=== PATIENT | male | born 1960 | race Native Hawaiian/Other Pacific Islander ===

== ENCOUNTER 2018-08-22 16:16 | Inpatient (IN) | payer OTHER ==
[2018-08-25 19:12] VITALS: BMI 43.9
--- NOTE | 2018-08-25 20:17 | CP.PCM.HP ---
History of Present Illness - History of Present Illness History of Present Illness: 58 yo male with history of Sarcoma of the right leg brought in from [facility] after undergoing right AKA on 08/18/2018. Present on Admission - Present on Admission Any Indicators Present on Admission: No History of DVT/PE: No History of Uncontrolled Diabetes: No Urinary Catheter: No Decubitus Ulcer Present: No Review of Systems - Review of Systems All systems: reviewed and no additional remarkable complaints except (aside from those mentioned above, 12 point system review were negative by me) Past Patient History - Tetanus Immunizations Tetanus Immunization: Unknown - Past Medical History & Family History Past Medical History?: Yes - Past Social History Smoking Status: Never Smoked Chewing Tobacco Use: No Cigar Use: No Alcohol: None Drugs: Denies - CARDIAC Hx Cardia Arrhythmia: No Hx Congestive Heart Failure: No Hx Hypercholesterolemia: No Hx Hypertension: Yes Hx Mitral Valve Prolapse: No Hx Pacemaker: No Hx Peripheral Edema: No - PULMONARY Hx Chronic Obstructive Pulmonary Disease (COPD): No - NEUROLOGICAL Hx Neurological Disorder: No - HEENT Hx HEENT Problems: No - RENAL Hx Chronic Kidney Disease: No - ENDOCRINE/METABOLIC Hx Diabetes Mellitus Type 2: Yes Hx Hyperthyroidism: No Hx Hypothyroidism: No - HEMATOLOGICAL/ONCOLOGICAL Hx Anemia: Yes Hx Cancer: Yes (right tibia) - INTEGUMENTARY Hx Dermatological Problems: No - MUSCULOSKELETAL/RHEUMATOLOGICAL Hx Arthritis: No Hx Rheumatoid Arthritis: No - GASTROINTESTINAL Hx Gastrointestinal Disorders: No Hx Bowel Surgery: No Hx Colostomy: No Hx Ileostomy: No - GENITOURINARY/GYNECOLOGICAL Hx Genitourinary Disorders: No - PSYCHIATRIC Hx Emotional Abuse: No Hx Physical Abuse: No Hx Substance Use: No - SURGICAL HISTORY Other/Comment: laser surgery both eyes. Right leg radical resection of tumor (Tibial shaft). Free right VRAM flap to right lower leg - ANESTHESIA Hx Anesthesia: Yes Hx Anesthesia Reactions: Yes (vomiting) Hx Malignant Hyperthermia: No Meds Allergies/Adverse Reactions: Allergies Allergy/AdvReac Type Severity Reaction Status Date / Time fosaprepitant Allergy Severe SHORTNESS Verified 08/25/18 20:38 [From Emend (fosaprepitant)] OF BREATH Physical Exam - Constitutional Appears: No Acute Distress - Head Exam Head Exam: ATRAUMATIC - Eye Exam Eye Exam: absent: Scleral icterus - ENT Exam ENT Exam: Mucous Membranes Moist - Neck Exam Neck exam: Negative for: Meningismus - Respiratory Exam Respiratory Exam: absent: Rales, Rhonchi, Wheezes, Respiratory Distress - Cardiovascular Exam Cardiovascular Exam: REGULAR RHYTHM, +S1, +S2 - GI/Abdominal Exam GI & Abdominal Exam: Soft. absent: Tenderness - Rectal Exam Rectal Exam: Deferred - Extremities Exam Extremities exam: Negative for: normal inspection (right leg amputated above the knee, surgical wound clean and dry with some blisters, suture intact, without sign of infection) - Neurological Exam Neurological exam: Alert, Oriented x3 - Psychiatric Exam Psychiatric exam: Normal Affect - Skin Skin Exam: Dry, Intact Assessment & Plan - Assessment and Plan (Free Text) Assessment: 58 yo male with history of Sarcoma of the right leg brought in from [facility] after undergoing right AKA on 08/18/2018. 1. Sarcoma post right AKA refer to PT for evaluation and management physiatry consult with Dr Anderson 2. DM2 accuchek ACHS FBS, HgA1C in am Levemir 50 units SC HS Glimipiride 4mg PO BID Metformin 1000mg PO BID 3. HTN BP stable continue Clonidine 4. DVT prophylaxis continue Lovenox
[2018-08-25] MEDS: oxyCODONE 5 mg Immediate Release Tab PO PRN (21:00)
[2018-08-25] MEDS ORDERED: Insulin Detemir 100 Units/ml Inj SC ONE (21:45)
[2018-08-25] MEDS: Insulin Lispro (humaLOG) 100 Units/ml Inj SC SCH (22:00)
[2018-08-26] MEDS: oxyCODONE 5 mg Immediate Release Tab PO PRN ×3 (05:25→16:57)
[2018-08-26 06:42] LABS: BASO % 0.6 % (0.0-2.0); EOS % 0.3 % (0.0-4.0); HEMOGLOBIN 8.2 g/dL (12.0-18.0); LYMPH # 0.5 K/uL (1.0-4.3); LYMPH % 11.7 % (20.0-40.0); MEAN CELL VOLUME 90.7 fl (80.0-94.0); MEAN CORPUSCULAR HEMOGLOBIN 30.1 pg (27.0-31.0); MEAN CORPUSCULAR HGB CONC 33.2 g/dL (33.0-37.0); MEAN PLATELET VOLUME 7.8 fl (7.2-11.7); MONO # 0.5 K/uL (0.0-0.8); MONO % 11.5 % (0.0-10.0); NEUT # 3.5 K/uL (1.8-7.0); NEUT % 75.9 % (50.0-75.0); NRBC % 0.1 % (0.0-0.0); RBC 2.74 Mil/uL (4.40-5.90); RED CELL DISTRIBUTION WIDTH 19.4 % (11.5-14.5); WHITE BLOOD COUNT 4.6 K/uL (4.8-10.8)
[2018-08-26] MEDS: Insulin Lispro (humaLOG) 100 Units/ml Inj SC SCH ×4 (06:56→21:01)
[2018-08-26 07:01] LABS: BLOOD UREA NITROGEN 12 mg/dl (9-20); CALCIUM 8.7 mg/dL (8.4-10.2); GFR NON-AFRICAN AMERICAN > 60; INR 1.1; PROTHROMBIN TIME 12.3 Seconds (9.8-13.1)
[2018-08-26 07:03] LABS: PARTIAL THROMBOPLASTIN TIME 34.2 Seconds (25.6-37.1)
[2018-08-26] MEDS ORDERED: oxyCODONE 5 mg Immediate Release Tab PO STA (07:03)
[2018-08-26] MEDS: Bisacodyl 5mg EC Tab PO SCH (09:00)
[2018-08-26] MEDS: GlipiZIDE 10 mg SR Tab PO SCH ×2 (09:01→16:59)
[2018-08-26] MEDS: Pantoprazole 40 mg EC Tab PO SCH (09:02)
--- NOTE | 2018-08-26 13:17 | PCM.PSYTMC ---
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 - Patient/Family Teaching: Other Intervention:: - Pain management. - Incisional care. - Safety - Goals/Time Frame: Comment: to be able to go home safely with improved self mobility and self care. - Provider: Registered Nurse:: Sharri Schneider Physical Therapy - Bed Mobility Bed Mobility: Moderate Assistance - Ambulation Distance (ft.): 12 Assistive Devices: Rolling Walker Nutrition - Current Diet Current Diet/Supplement/Feedings: Moderate consistent CHO 2 gram Na diet - Appetite Percent Meal Consumed: 25-49% - Assessment/Goals/Time Frame Assessments/Goals/Time Frame: Pt at high nutritional risk. goals: 1. Pt to consume 75-100% of meals. 2. Blood glucoses to be between 70-180 mg/dl. Follow-up due on 08/31/2018 - Provider Provider: Andreina Rodriguez Case Management - Psychosocial Assessment Support Systems: Kristel Barraza () - [phone] Psychological Interventions/Needs: Patient is AAOx3 and able to verbalize needs. Discharge Concerns: Patient is a new amputee Patient/Family Meeting: CM met with patient and rehab team Intervention/Goal/Outcome: 1. Goal: 24 hr supervision 2. Plan: home with VNS and family support 3. begin to order appropriate DME 4. caregiver training with 5. emotional support - Discharge Plan Discharge Plan: Home with services - Provider Provider: Jackeline Nassar License Number: [id number] Rehabilitation Plan - Treatment Plan Treatment Plan: Physical Therapy, Occupational Therapy, Dietary, Patient/Family Education - Discharge Plan Discharge to: Home
[2018-08-26] MEDS: Silver Sulfadiazine 1% Cream (20 gm) TOP SCH ×2 (13:54→16:58)
[2018-08-26] MEDS: Enoxaparin 40 mg Syringe SC SCH (13:55)
--- NOTE | 2018-08-26 13:57 | PCM.OPOC ---
Physiatry Overall Plan of Care - Overall Plan of Care Estimated Length of Stay in Weeks: 3 Rehab Impairment: Mobility, Gait, Balance Etiologic Diagnosis: Amputee Rehab/Medical Prognosis: Fair - Anticipated Interventions Physical Therapy:: Yes Number of Hours: 1.5 Number of times per week: 6 Number of Week(s) Duration: 3 Occupational Therapy:: Yes Number of Hours: 1.5 Number of times per week: 6 Number of Week(s) Duration: 3 Speech Therapy:: No Number of Hours: 0.5 Number of times per week: 5 Recreational Therapy:: Yes Number of Hours: 0.5 Number of times per week: 5 Number of Week(s) Duration: 3 - Therapy Goals Bed Mobility: Supervision Ambulation: Contact Guard Functional Positional Changes:: Supervision - Functional Status Prior to Admission: non-ambulatory Current Status: needs moderate assist for LE ADLs and ambulation only 12 feet with walker - Functional Outcomes Functional Outcomes: to be determined - Discharge Plan Identification of Barriers to Discharge: Home Situation Discharge Destination: Home
--- NOTE | 2018-08-26 14:00 | PCM.CPAPS ---
History of Present Illness - History of Present Illness History of Present Illness: Dr Anderson PMR consultation on Nikita Barraza, born 1960, who has been admitted to [facility] for acute inpatient rehabilitation following a right AKA at for Sarcoma. Has had radiation treatment. Known mets to other areas, some improved and some did not with chemo treatment. Review of Systems - Constitutional Constitutional: absent: Anorexia, Daytime Sleepiness, Increased Appetite - EENT Eyes: absent: Change in Vision, Dry Eye Ears: absent: Ear Discharge, Ear Pain Nose/Mouth/Throat: absent: Nasal Congestion - Cardiovascular Cardiovascular: absent: Chest Pain - Respiratory Respiratory: absent: Cough, Dyspnea, Hemoptysis - Gastrointestinal Gastrointestinal: Constipation (but had a BM today). absent: Belching - Integumentary Integumentary: absent: Bleeding Lesions (incision on right AKA) - Neurological Neurological: absent: Abnormal Movements - Psychiatric Psychiatric: absent: Irritability Past Patient History - Tetanus Immunizations Tetanus Immunization: Unknown - Past Medical History & Family History Past Medical History?: Yes - Past Social History Smoking Status: Never Smoked Chewing Tobacco Use: No Cigar Use: No Alcohol: None Drugs: Denies - CARDIAC Hx Cardia Arrhythmia: No Hx Congestive Heart Failure: No Hx Hypercholesterolemia: No Hx Hypertension: Yes Hx Mitral Valve Prolapse: No Hx Pacemaker: No Hx Peripheral Edema: No - PULMONARY Hx Chronic Obstructive Pulmonary Disease (COPD): No - NEUROLOGICAL Hx Neurological Disorder: No - HEENT Hx HEENT Problems: No - RENAL Hx Chronic Kidney Disease: No - ENDOCRINE/METABOLIC Hx Diabetes Mellitus Type 2: Yes Hx Hyperthyroidism: No Hx Hypothyroidism: No - HEMATOLOGICAL/ONCOLOGICAL Hx Anemia: Yes Hx Cancer: Yes (right tibia) - INTEGUMENTARY Hx Dermatological Problems: No - MUSCULOSKELETAL/RHEUMATOLOGICAL Hx Arthritis: No Hx Rheumatoid Arthritis: No - GASTROINTESTINAL Hx Gastrointestinal Disorders: No Hx Bowel Surgery: No Hx Colostomy: No Hx Ileostomy: No - GENITOURINARY/GYNECOLOGICAL Hx Genitourinary Disorders: No - PSYCHIATRIC Hx Emotional Abuse: No Hx Physical Abuse: No Hx Substance Use: No - SURGICAL HISTORY Other/Comment: laser surgery both eyes. Right leg radical resection of tumor (Tibial shaft). Free right VRAM flap to right lower leg - ANESTHESIA Hx Anesthesia: Yes Hx Anesthesia Reactions: Yes (vomiting) Hx Malignant Hyperthermia: No Meds Allergies/Adverse Reactions: Allergies Allergy/AdvReac Type Severity Reaction Status Date / Time fosaprepitant Allergy Severe SHORTNESS Verified 08/25/18 20:38 [From Emend (fosaprepitant)] OF BREATH - Medications Medications: Current Medications Albuterol (Ventolin Hfa 90 Mcg/Actuation (8 G)) 1 puff IH QID PRN PRN Reason: Shortness of Breath Atorvastatin Calcium (Lipitor) 10 mg PO HS [facility] Last Admin: 08/25/18 21:03 Dose: 10 mg Bisacodyl (Dulcolax) 5 mg PO DAILY [facility] Last Admin: 08/26/18 09:00 Dose: Not Given Clonidine HCl (Catapres) 0.1 mg PO 1400 [facility] Docusate Sodium (Colace) 300 mg PO DAILY [facility] Last Admin: 08/26/18 08:59 Dose: 300 mg Enoxaparin Sodium (Lovenox) 40 mg SC DAILY [facility]; Protocol Gabapentin (Neurontin) 300 mg PO Q8 [facility] Last Admin: 08/26/18 05:26 Dose: 300 mg Glipizide (Glucotrol Xl) 10 mg PO BID [facility] Last Admin: 08/26/18 09:01 Dose: 10 mg Insulin Detemir (Levemir) 50 units SC HS [facility] Insulin Human Lispro (Humalog) 0 units SC [facility]; Protocol Last Admin: 08/26/18 12:43 Dose: 2 unit Lorazepam (Ativan) 0.5 mg PO Q8H PRN PRN Reason: Anxiety Metformin HCl (Glucophage) 1,000 mg PO BID [facility] Last Admin: 08/26/18 09:01 Dose: 1,000 mg Oxycodone HCl (Oxycodone Immediate Release Tab) 5 mg PO Q4 PRN PRN Reason: Pain, moderate (4-7) Last Admin: 08/26/18 05:25 Dose: 5 mg Oxycodone HCl (Oxycodone Immediate Release Tab) 10 mg PO Q4 PRN PRN Reason: Pain, severe (8-10) Last Admin: 08/26/18 09:56 Dose: 10 mg Pantoprazole Sodium (Protonix Ec Tab) 40 mg PO DAILY [facility] Last Admin: 08/26/18 09:02 Dose: 40 mg Sennosides (Senokot Tab) 17.2 mg PO [facility] Silver Sulfadiazine (Silvadene 1% 20 Gm) 1 ea TOP BID [facility] Sitagliptin Phosphate (Januvia) 50 mg PO BID [facility] Last Admin: 08/26/18 09:01 Dose: 50 mg Physical Exam - Constitutional Appears: Non-toxic, No Acute Distress - Head Exam Head Exam: ATRAUMATIC, NORMAL INSPECTION, NORMOCEPHALIC - Eye Exam Eye Exam: EOMI - ENT Exam ENT Exam: Mucous Membranes Moist - Respiratory Exam Respiratory Exam: NORMAL BREATHING PATTERN - Cardiovascular Exam Cardiovascular Exam: REGULAR RHYTHM - GI/Abdominal Exam GI & Abdominal Exam: absent: Diminished Bowel Sounds, Firm, Guarding - Extremities Exam Extremities exam: Negative for: normal inspection (right AKA with good lenth. + sutures. Multiple blisters lateral, anterior and distal on and near incision line) - Neurological Exam Neurological exam: Alert, CN II-XII Intact, Oriented x3 - Psychiatric Exam Psychiatric exam: Normal Affect, Normal Mood - Skin Skin Exam: Normal Color, Warm Results - Vital Signs Recent Vital Signs: Last Vital Signs Temp 98.1 F 08/26/18 10:00 Pulse 79 08/26/18 10:00 Resp 20 08/26/18 10:00 BP 144/71 08/26/18 10:00 Pulse Ox 96 08/26/18 07:36 - Labs Result Diagrams: 08/26/18 06:00 08/26/18 06:00 Labs: Laboratory Results - last 24 hr 08/25/18 08/26/18 08/26/18 20:18 06:00 06:00 WBC 4.6 L RBC 2.74 L Hgb 8.2 L D Hct 24.8 L MCV 90.7 MCH 30.1 MCHC 33.2 RDW 19.4 H Plt Count 128 L MPV 7.8 Neut % (Auto) 75.9 H Lymph % (Auto) 11.7 L Crowley % (Auto) 11.5 H Eos % (Auto) 0.3 Baso % (Auto) 0.6 Neut # (Auto) 3.5 Lymph # (Auto) 0.5 L Crowley # (Auto) 0.5 Eos # (Auto) 0.0 Baso # (Auto) 0.0 PT INR APTT Sodium 138 Potassium 4.2 Chloride 98 Carbon Dioxide 31 H Anion Gap 13 BUN 12 Creatinine 0.9 Est GFR ( Amer) > 60 Est GFR (Non-Af Amer) > 60 POC Glucose (mg/dL) 124 H Random Glucose 155 H Hemoglobin A1c Calcium 8.7 08/26/18 08/26/18 08/26/18 06:00 06:00 06:09 WBC RBC Hgb Hct MCV MCH MCHC RDW Plt Count MPV Neut % (Auto) Lymph % (Auto) Crowley % (Auto) Eos % (Auto) Baso % (Auto) Neut # (Auto) Lymph # (Auto) Crowley # (Auto) Eos # (Auto) Baso # (Auto) PT 12.3 INR 1.1 APTT 34.2 Sodium Potassium Chloride Carbon Dioxide Anion Gap BUN Creatinine Est GFR ( Amer) Est GFR (Non-Af Amer) POC Glucose (mg/dL) 161 H Random Glucose Hemoglobin A1c 7.7 H D Calcium 08/26/18 11:14 WBC RBC Hgb Hct MCV MCH MCHC RDW Plt Count MPV Neut % (Auto) Lymph % (Auto) Crowley % (Auto) Eos % (Auto) Baso % (Auto) Neut # (Auto) Lymph # (Auto) Crowley # (Auto) Eos # (Auto) Baso # (Auto) PT INR APTT Sodium Potassium Chloride Carbon Dioxide Anion Gap BUN Creatinine Est GFR ( Amer) Est GFR (Non-Af Amer) POC Glucose (mg/dL) 212 H Random Glucose Hemoglobin A1c Calcium Assessment & Plan - Assessment and Plan (Free Text) Assessment: PT/OT to continue to help increase functional independence Team conference for d/c planning Pain: controlled Vascular: no evidence of DVT GI: No evidence of constipation or diarrhea I used a needle to gently puncture the lateral and anterior blisters so they would not be opened by friction with the wrapping and risk a skin tear as well Patient is an excellent acute rehabilitation candidate and will have focused pain management, wound care, PT, OT and recreational therapy to help facilitate a safe and appropriate d/c plan - Functional Status Prior to Admission: Needed assistance with ambulation after the AKA Current Status: Needs assistance with LE ADLs and ambulation Impairment Code: 05.3
[2018-08-26] MEDS: Insulin Detemir 100 Units/ml Inj SC SCH (21:59)
[2018-08-27] MEDS: oxyCODONE 5 mg Immediate Release Tab PO PRN ×3 (00:51→13:21)
[2018-08-27] MEDS: Insulin Lispro (humaLOG) 100 Units/ml Inj SC SCH ×4 (06:30→21:49)
[2018-08-27] MEDS: Enoxaparin 40 mg Syringe SC SCH (08:48)
[2018-08-27] MEDS: Bisacodyl 5mg EC Tab PO SCH (08:50)
[2018-08-27] MEDS: GlipiZIDE 10 mg SR Tab PO SCH ×2 (08:51→17:11)
[2018-08-27] MEDS: Silver Sulfadiazine 1% Cream (20 gm) TOP SCH ×2 (08:52→17:10)
[2018-08-27] MEDS: Pantoprazole 40 mg EC Tab PO SCH (08:52)
--- NOTE | 2018-08-27 18:02 | CP.PCM.PN ---
Subjective - Date & Time of Evaluation Date of Evaluation: 08/27/18 Time of Evaluation: 18:01 - Subjective Subjective: Nikita Barraza, born 1960, who has been admitted to [facility] for acute inpatient rehabilitation following a right AKA at for Sarcoma. Has had radiation treatment. Known mets to other areas, some improved and some did not with chemo treatment. Feeling much better now that up and about in therapies Objective - Vital Signs/Intake and Output Vital Signs (last 24 hours): Temp Pulse Resp BP Pulse Ox 97.7 F 80 18 129/74 94 L 08/27/18 07:27 08/27/18 13:26 08/27/18 07:27 08/27/18 13:26 08/27/18 07:27 - Medications Medications: Current Medications Albuterol (Ventolin Hfa 90 Mcg/Actuation (8 G)) 1 puff IH QID PRN PRN Reason: Shortness of Breath Atorvastatin Calcium (Lipitor) 10 mg PO HS [facility] Last Admin: 08/26/18 21:57 Dose: 10 mg Bisacodyl (Dulcolax) 5 mg PO DAILY [facility] Last Admin: 08/27/18 08:50 Dose: 5 mg Clonidine HCl (Catapres) 0.1 mg PO 1400 [facility] Last Admin: 08/27/18 13:26 Dose: 0.1 mg Docusate Sodium (Colace) 300 mg PO DAILY [facility] Last Admin: 08/27/18 08:49 Dose: 300 mg Enoxaparin Sodium (Lovenox) 40 mg SC DAILY [facility]; Protocol Last Admin: 08/27/18 08:48 Dose: 40 mg Ferrous Sulfate (Feosol) 325 mg PO BID [facility] Last Admin: 08/27/18 17:11 Dose: 325 mg Gabapentin (Neurontin) 300 mg PO Q8 [facility] Last Admin: 08/27/18 13:23 Dose: 300 mg Glipizide (Glucotrol Xl) 10 mg PO BID [facility] Last Admin: 08/27/18 17:11 Dose: 10 mg Insulin Detemir (Levemir) 50 units SC [facility] Last Admin: 08/26/18 21:59 Dose: 50 units Insulin Human Lispro (Humalog) 0 units SC [facility]; Protocol Last Admin: 08/27/18 17:02 Dose: Not Given Lorazepam (Ativan) 0.5 mg PO Q8H PRN PRN Reason: Anxiety Metformin HCl (Glucophage) 1,000 mg PO BID [facility] Last Admin: 08/27/18 17:11 Dose: 1,000 mg Oxycodone HCl (Oxycodone Immediate Release Tab) 5 mg PO Q4 PRN PRN Reason: Pain, moderate (4-7) Last Admin: 08/27/18 06:23 Dose: 5 mg Oxycodone HCl (Oxycodone Immediate Release Tab) 10 mg PO Q4 PRN PRN Reason: Pain, severe (8-10) Last Admin: 08/27/18 13:21 Dose: 10 mg Pantoprazole Sodium (Protonix Ec Tab) 40 mg PO DAILY [facility] Last Admin: 08/27/18 08:52 Dose: 40 mg Sennosides (Senokot Tab) 17.2 mg PO HS [facility] Last Admin: 08/26/18 21:57 Dose: 17.2 mg Silver Sulfadiazine (Silvadene 1% 20 Gm) 1 ea TOP BID [facility] Last Admin: 08/27/18 17:10 Dose: Not Given Sitagliptin Phosphate (Januvia) 50 mg PO BID [facility] Last Admin: 08/27/18 17:12 Dose: 50 mg - Labs Labs: 08/26/18 06:00 08/26/18 06:00 PT 12.3 Seconds (9.8-13.1) 08/26/18 06:00 INR 1.1 08/26/18 06:00 APTT 34.2 Seconds (25.6-37.1) 08/26/18 06:00 - Constitutional Appears: Non-toxic, No Acute Distress - Head Exam Head Exam: ATRAUMATIC - Eye Exam Eye Exam: EOMI - ENT Exam ENT Exam: Mucous Membranes Moist - Respiratory Exam Respiratory Exam: NORMAL BREATHING PATTERN - GI/Abdominal Exam GI & Abdominal Exam: Distended. absent: Guarding - Neurological Exam Neurological Exam: Alert Neuro motor strength exam: Left Upper Extremity: 5, Right Upper Extremity: 5 - Psychiatric Exam Psychiatric exam: Normal Affect, Normal Mood - Skin Skin Exam: Warm Assessment and Plan - Assessment and Plan (Free Text) Assessment: PT/OT to continue to help increase functional independence Team conference for d/c planning Pain: controlled Vascular: no evidence of DVT GI: No evidence of constipation or diarrhea Patient continues to be an excellent acute rehabilitation candidate and will have continued wound care, pain management PT, OT and recreational therapy to help facilitate a safe and appropriate d/c plan
[2018-08-27] MEDS: Insulin Detemir 100 Units/ml Inj SC SCH (21:53)
[2018-08-28] MEDS: Silver Sulfadiazine 1% Cream (20 gm) TOP SCH ×2 (06:57→17:21)
[2018-08-28 07:10] LABS: HEMOGLOBIN 9.2 g/dL (12.0-18.0); MEAN CELL VOLUME 91.3 fl (80.0-94.0); MEAN CORPUSCULAR HGB CONC 32.9 g/dL (33.0-37.0); RBC 3.07 Mil/uL (4.40-5.90); RED CELL DISTRIBUTION WIDTH 19.5 % (11.5-14.5); WHITE BLOOD COUNT 5.4 K/uL (4.8-10.8)
[2018-08-28] MEDS: Insulin Lispro (humaLOG) 100 Units/ml Inj SC SCH ×4 (07:16→22:38)
[2018-08-28] MEDS: oxyCODONE 5 mg Immediate Release Tab PO PRN (09:09)
[2018-08-28] MEDS: Enoxaparin 40 mg Syringe SC SCH (09:11)
[2018-08-28] MEDS: Bisacodyl 5mg EC Tab PO SCH (09:12)
[2018-08-28] MEDS: GlipiZIDE 10 mg SR Tab PO SCH ×2 (09:12→16:25)
[2018-08-28] MEDS: Pantoprazole 40 mg EC Tab PO SCH (09:13)
[2018-08-28] MEDS: Insulin Detemir 100 Units/ml Inj SC SCH (22:07)
[2018-08-29] MEDS: Silver Sulfadiazine 1% Cream (20 gm) TOP SCH ×2 (06:35→17:42)
[2018-08-29 06:56] LABS: HEMOGLOBIN 8.2 g/dL (12.0-18.0); MEAN CELL VOLUME 90.8 fl (80.0-94.0); MEAN CORPUSCULAR HEMOGLOBIN 29.6 pg (27.0-31.0); MEAN CORPUSCULAR HGB CONC 32.6 g/dL (33.0-37.0); RBC 2.76 Mil/uL (4.40-5.90); RED CELL DISTRIBUTION WIDTH 20.1 % (11.5-14.5)
[2018-08-29 07:11] LABS: CALCIUM 9.2 mg/dL (8.4-10.2)
[2018-08-29] MEDS: Insulin Lispro (humaLOG) 100 Units/ml Inj SC SCH ×4 (07:50→21:00)
[2018-08-29] MEDS: GlipiZIDE 10 mg SR Tab PO SCH ×2 (08:51→16:36)
[2018-08-29] MEDS: Pantoprazole 40 mg EC Tab PO SCH (08:51)
[2018-08-29] MEDS: Bisacodyl 5mg EC Tab PO SCH (08:51)
[2018-08-29] MEDS: Enoxaparin 40 mg Syringe SC SCH (08:51)
--- NOTE | 2018-08-29 14:21 | CP.PCM.PN ---
Subjective - Date & Time of Evaluation Date of Evaluation: 08/29/18 Time of Evaluation: 11:00 - Subjective Subjective: Patient seen and examined. Claimed he was alright but was tired and sleepy post therapy. Objective - Vital Signs/Intake and Output Vital Signs (last 24 hours): Temp Pulse Resp BP Pulse Ox 98.2 F 78 20 147/72 98 08/29/18 07:49 08/29/18 07:49 08/29/18 07:49 08/29/18 07:49 08/29/18 07:49 - Medications Medications: Current Medications Albuterol (Ventolin Hfa 90 Mcg/Actuation (8 G)) 1 puff IH QID PRN PRN Reason: Shortness of Breath Atorvastatin Calcium (Lipitor) 10 mg PO HS [facility] Last Admin: 08/28/18 22:06 Dose: 10 mg Bisacodyl (Dulcolax) 5 mg PO DAILY [facility] Last Admin: 08/29/18 08:51 Dose: 5 mg Clonidine HCl (Catapres) 0.1 mg PO 1400 [facility] Last Admin: 08/28/18 14:04 Dose: 0.1 mg Docusate Sodium (Colace) 300 mg PO DAILY [facility] Last Admin: 08/29/18 08:52 Dose: 300 mg Enoxaparin Sodium (Lovenox) 40 mg SC DAILY [facility]; Protocol Last Admin: 08/29/18 08:51 Dose: 40 mg Ferrous Sulfate (Feosol) 325 mg PO BID [facility] Last Admin: 08/29/18 08:53 Dose: 325 mg Gabapentin (Neurontin) 300 mg PO Q8 [facility] Last Admin: 08/29/18 06:13 Dose: 300 mg Glipizide (Glucotrol Xl) 10 mg PO BID [facility] Last Admin: 08/29/18 08:51 Dose: 10 mg Sodium Chloride (Sodium Chloride 0.9%) 1,000 mls @ 100 mls/hr IV .Q10H [facility] Stop: 08/30/18 12:03 Sodium Chloride (Sodium Chloride 0.9%) 1,000 mls @ 100 mls/hr IV .Q10H [facility] Stop: 08/31/18 12:16 Insulin Detemir (Levemir) 50 units SC [facility] Last Admin: 08/28/18 22:07 Dose: 50 units Insulin Human Lispro (Humalog) 0 units SC [facility]; Protocol Last Admin: 08/29/18 11:48 Dose: Not Given Lorazepam (Ativan) 0.5 mg PO Q8H PRN PRN Reason: Anxiety Metformin HCl (Glucophage) 1,000 mg PO BID [facility] Last Admin: 08/29/18 08:53 Dose: 1,000 mg Oxycodone HCl (Oxycodone Immediate Release Tab) 5 mg PO Q4 PRN PRN Reason: Pain, moderate (4-7) Last Admin: 08/28/18 09:09 Dose: 5 mg Oxycodone HCl (Oxycodone Immediate Release Tab) 10 mg PO Q4 PRN PRN Reason: Pain, severe (8-10) Last Admin: 08/27/18 13:21 Dose: 10 mg Pantoprazole Sodium (Protonix Ec Tab) 40 mg PO DAILY [facility] Last Admin: 08/29/18 08:51 Dose: 40 mg Sennosides (Senokot Tab) 17.2 mg PO HS [facility] Last Admin: 08/28/18 22:06 Dose: 17.2 mg Silver Sulfadiazine (Silvadene 1% 20 Gm) 1 ea TOP 0600,1800 [facility] Last Admin: 08/29/18 06:35 Dose: 1 each Sitagliptin Phosphate (Januvia) 50 mg PO BID [facility] Last Admin: 08/29/18 08:53 Dose: 50 mg - Labs Labs: 08/29/18 06:28 08/29/18 06:28 PT 12.3 Seconds (9.8-13.1) 08/26/18 06:00 INR 1.1 08/26/18 06:00 APTT 34.2 Seconds (25.6-37.1) 08/26/18 06:00 - Constitutional Appears: No Acute Distress - Head Exam Head Exam: ATRAUMATIC - Eye Exam Eye Exam: absent: Scleral icterus - ENT Exam ENT Exam: Mucous Membranes Moist - Neck Exam Neck Exam: absent: Meningismus - Respiratory Exam Respiratory Exam: absent: Rales, Rhonchi, Wheezes, Respiratory Distress - Cardiovascular Exam Cardiovascular Exam: REGULAR RHYTHM, +S1, +S2 - GI/Abdominal Exam GI & Abdominal Exam: Soft. absent: Tenderness - Rectal Exam Rectal Exam: Deferred - Extremities Exam Extremities Exam: absent: Normal Inspection (right AKA stump clean without sign of infection or drainage) - Neurological Exam Neurological Exam: Alert, Oriented x3 - Psychiatric Exam Psychiatric exam: Normal Affect - Skin Skin Exam: Dry, Intact Assessment and Plan - Assessment and Plan (Free Text) Assessment: 58 yo male with history of Sarcoma of the right leg brought in from [facility] after undergoing right AKA on 08/18/2018. 1. Sarcoma post right AKA continue PT/OT pain manageable Dr Anderson on physiatry consult 2. DM2 BS controlled FBS, HgA1C in am Levemir 50 units SC HS Glipizide 10mg PO BID Metformin 1000mg PO BID 3. HTN BP stable continue Clonidine 4. DVT prophylaxis continue Lovenox
--- NOTE | 2018-08-29 14:49 | CP.PCM.PN ---
Subjective - Date & Time of Evaluation Date of Evaluation: 08/29/18 Time of Evaluation: 14:48 - Subjective Subjective: Patient seen in the PT gym no more phantom sensation seen by emergency preparedness coordinator no sob/cp continue local wound care and pain management Objective - Vital Signs/Intake and Output Vital Signs (last 24 hours): Temp Pulse Resp BP Pulse Ox 98.2 F 92 H 20 132/72 98 08/29/18 07:49 08/29/18 14:44 08/29/18 07:49 08/29/18 14:44 08/29/18 07:49 - Medications Medications: Current Medications Albuterol (Ventolin Hfa 90 Mcg/Actuation (8 G)) 1 puff IH QID PRN PRN Reason: Shortness of Breath Atorvastatin Calcium (Lipitor) 10 mg PO HS [facility] Last Admin: 08/28/18 22:06 Dose: 10 mg Bisacodyl (Dulcolax) 5 mg PO DAILY [facility] Last Admin: 08/29/18 08:51 Dose: 5 mg Clonidine HCl (Catapres) 0.1 mg PO 1400 [facility] Last Admin: 08/29/18 14:44 Dose: 0.1 mg Docusate Sodium (Colace) 300 mg PO DAILY [facility] Last Admin: 08/29/18 08:52 Dose: 300 mg Enoxaparin Sodium (Lovenox) 40 mg SC DAILY [facility]; Protocol Last Admin: 08/29/18 08:51 Dose: 40 mg Ferrous Sulfate (Feosol) 325 mg PO BID [facility] Last Admin: 08/29/18 08:53 Dose: 325 mg Gabapentin (Neurontin) 300 mg PO Q8 [facility] Last Admin: 08/29/18 14:44 Dose: 300 mg Glipizide (Glucotrol Xl) 10 mg PO BID [facility] Last Admin: 08/29/18 08:51 Dose: 10 mg Sodium Chloride (Sodium Chloride 0.9%) 1,000 mls @ 100 mls/hr IV .Q10H [facility] Stop: 08/30/18 12:03 Sodium Chloride (Sodium Chloride 0.9%) 1,000 mls @ 100 mls/hr IV .Q10H [facility] Stop: 08/31/18 12:16 Insulin Detemir (Levemir) 50 units SC [facility] Last Admin: 08/28/18 22:07 Dose: 50 units Insulin Human Lispro (Humalog) 0 units SC [facility]; Protocol Last Admin: 08/29/18 11:48 Dose: Not Given Lorazepam (Ativan) 0.5 mg PO Q8H PRN PRN Reason: Anxiety Metformin HCl (Glucophage) 1,000 mg PO BID [facility] Last Admin: 08/29/18 08:53 Dose: 1,000 mg Oxycodone HCl (Oxycodone Immediate Release Tab) 5 mg PO Q4 PRN PRN Reason: Pain, moderate (4-7) Last Admin: 08/28/18 09:09 Dose: 5 mg Oxycodone HCl (Oxycodone Immediate Release Tab) 10 mg PO Q4 PRN PRN Reason: Pain, severe (8-10) Last Admin: 08/27/18 13:21 Dose: 10 mg Pantoprazole Sodium (Protonix Ec Tab) 40 mg PO DAILY [facility] Last Admin: 08/29/18 08:51 Dose: 40 mg Sennosides (Senokot Tab) 17.2 mg PO HS [facility] Last Admin: 08/28/18 22:06 Dose: 17.2 mg Silver Sulfadiazine (Silvadene 1% 20 Gm) 1 ea TOP 0600,1800 [facility] Last Admin: 08/29/18 06:35 Dose: 1 each Sitagliptin Phosphate (Januvia) 50 mg PO BID [facility] Last Admin: 08/29/18 08:53 Dose: 50 mg - Labs Labs: 08/29/18 06:28 08/29/18 06:28 PT 12.3 Seconds (9.8-13.1) 08/26/18 06:00 INR 1.1 08/26/18 06:00 APTT 34.2 Seconds (25.6-37.1) 08/26/18 06:00
--- NOTE | 2018-08-29 15:35 | CP.PCM.CON ---
History of Present Illness - History of Present Illness History of Present Illness: This patient is 58 years of age male who was called to see him for abnormal kidney function. 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 It was noted that his serum creatinine has gone up while he is here in the hospital. All the medications has been reviewed patient has not been receiving any antibiotics Medical history related diabetes mellitus mild hypertension as he describe it. [place] in the acute rehab receiving physical therapy Review of Systems - Constitutional Constitutional: absent: Anorexia, Chills - EENT Nose/Mouth/Throat: absent: Epistaxis - Cardiovascular Cardiovascular: absent: Acrocyanosis, Chest Pain at Rest, Dyspnea, Edema, Syncope - Respiratory Respiratory: absent: Cough, Dyspnea - Gastrointestinal Gastrointestinal: absent: As Per HPI, Abdominal Pain, Belching, Bloating, Change in Bowel Habits, Change in Stool Character, Coffee Ground Emesis, Constipation, Cramping, Diarrhea, Dyspepsia, Dysphagia, Early Satiety, Excessive Flatus, Fecal Incontinence, Heartburn, Hematemesis, Hematochezia, Loose Stools, Melena, Nausea, Odynophagia, Temesmus, Vomiting, Other - Genitourinary Genitourinary: Nocturia. absent: Hematuria - Musculoskeletal Musculoskeletal: absent: Arthralgias, Back Pain - Neurological Neurological: As Per HPI. absent: Confusion, Dizziness, Focal Weakness, Syncope - Psychiatric Psychiatric: absent: Anxiety, Confusion, Irritability - Endocrine Endocrine: Fatigue - Hematologic/Lymphatic Hematologic: absent: Easy Bleeding Past Patient History - Tetanus Immunizations Tetanus Immunization: Unknown - Past Medical History & Family History Past Medical History?: Yes - Past Social History Smoking Status: Never Smoked Chewing Tobacco Use: No Cigar Use: No Alcohol: None Drugs: Denies - CARDIAC Hx Cardia Arrhythmia: No Hx Congestive Heart Failure: No Hx Hypercholesterolemia: No Hx Hypertension: Yes Hx Mitral Valve Prolapse: No Hx Pacemaker: No Hx Peripheral Edema: No - PULMONARY Hx Chronic Obstructive Pulmonary Disease (COPD): No - NEUROLOGICAL Hx Neurological Disorder: No - HEENT Hx HEENT Problems: No - RENAL Hx Chronic Kidney Disease: No - ENDOCRINE/METABOLIC Hx Diabetes Mellitus Type 2: Yes Hx Hyperthyroidism: No Hx Hypothyroidism: No - HEMATOLOGICAL/ONCOLOGICAL Hx Anemia: Yes Hx Cancer: Yes (right tibia) - INTEGUMENTARY Hx Dermatological Problems: No - MUSCULOSKELETAL/RHEUMATOLOGICAL Hx Arthritis: No Hx Rheumatoid Arthritis: No - GASTROINTESTINAL Hx Gastrointestinal Disorders: No Hx Bowel Surgery: No Hx Colostomy: No Hx Ileostomy: No - GENITOURINARY/GYNECOLOGICAL Hx Genitourinary Disorders: No - PSYCHIATRIC Hx Emotional Abuse: No Hx Physical Abuse: No Hx Substance Use: No - SURGICAL HISTORY Other/Comment: laser surgery both eyes. Right leg radical resection of tumor ( Tibial shaft). Free right VRAM flap to right lower leg - ANESTHESIA Hx Anesthesia: Yes Hx Anesthesia Reactions: Yes (vomiting) Hx Malignant Hyperthermia: No Meds Allergies/Adverse Reactions: Allergies Allergy/AdvReac Type Severity Reaction Status Date / Time fosaprepitant Allergy Severe SHORTNESS Verified 08/25/18 20:38 [From Emend (fosaprepitant)] OF BREATH - Medications Medications: Current Medications Albuterol (Ventolin Hfa 90 Mcg/Actuation (8 G)) 1 puff IH QID PRN PRN Reason: Shortness of Breath Atorvastatin Calcium (Lipitor) 10 mg PO HS [facility] Last Admin: 08/28/18 22:06 Dose: 10 mg Bisacodyl (Dulcolax) 5 mg PO DAILY [facility] Last Admin: 08/29/18 08:51 Dose: 5 mg Clonidine HCl (Catapres) 0.1 mg PO 1400 [facility] Last Admin: 08/29/18 14:44 Dose: 0.1 mg Docusate Sodium (Colace) 300 mg PO DAILY [facility] Last Admin: 08/29/18 08:52 Dose: 300 mg Enoxaparin Sodium (Lovenox) 40 mg SC DAILY [facility]; Protocol Last Admin: 08/29/18 08:51 Dose: 40 mg Ferrous Sulfate (Feosol) 325 mg PO BID [facility] Last Admin: 08/29/18 08:53 Dose: 325 mg Gabapentin (Neurontin) 300 mg PO Q8 [facility] Last Admin: 08/29/18 14:44 Dose: 300 mg Glipizide (Glucotrol Xl) 10 mg PO BID [facility] Last Admin: 08/29/18 08:51 Dose: 10 mg Sodium Chloride (Sodium Chloride 0.9%) 1,000 mls @ 100 mls/hr IV .Q10H [facility] Stop: 08/30/18 12:03 Sodium Chloride (Sodium Chloride 0.9%) 1,000 mls @ 100 mls/hr IV .Q10H [facility] Stop: 08/31/18 12:16 Insulin Detemir (Levemir) 50 units SC [facility] Last Admin: 08/28/18 22:07 Dose: 50 units Insulin Human Lispro (Humalog) 0 units SC [facility]; Protocol Last Admin: 08/29/18 11:48 Dose: Not Given Lorazepam (Ativan) 0.5 mg PO Q8H PRN PRN Reason: Anxiety Metformin HCl (Glucophage) 1,000 mg PO BID [facility] Last Admin: 08/29/18 08:53 Dose: 1,000 mg Oxycodone HCl (Oxycodone Immediate Release Tab) 5 mg PO Q4 PRN PRN Reason: Pain, moderate (4-7) Last Admin: 08/28/18 09:09 Dose: 5 mg Oxycodone HCl (Oxycodone Immediate Release Tab) 10 mg PO Q4 PRN PRN Reason: Pain, severe (8-10) Last Admin: 08/27/18 13:21 Dose: 10 mg Pantoprazole Sodium (Protonix Ec Tab) 40 mg PO DAILY [facility] Last Admin: 08/29/18 08:51 Dose: 40 mg Sennosides (Senokot Tab) 17.2 mg PO [facility] Last Admin: 08/28/18 22:06 Dose: 17.2 mg Silver Sulfadiazine (Silvadene 1% 20 Gm) 1 ea TOP 0600,1800 [facility] Last Admin: 08/29/18 06:35 Dose: 1 each Sitagliptin Phosphate (Januvia) 50 mg PO BID [facility] Last Admin: 08/29/18 08:53 Dose: 50 mg Physical Exam - Constitutional Appears: No Acute Distress - Eye Exam Eye Exam: absent: Conjunctival injection - ENT Exam ENT Exam: Mucous Membranes Moist - Neck Exam Neck exam: Negative for: Lymphadenopathy - Respiratory Exam Respiratory Exam: NORMAL BREATHING PATTERN. absent: Chest Wall Tenderness, Rhonchi - Cardiovascular Exam Cardiovascular Exam: absent: Gallop, JVD, Rubs - GI/Abdominal Exam GI & Abdominal Exam: Normal Bowel Sounds. absent: Guarding - Extremities Exam Extremities exam: Negative for: calf tenderness - Back Exam Back exam: absent: CVA tenderness (L), CVA tenderness (R) - Neurological Exam Neurological exam: Alert - Psychiatric Exam Psychiatric exam: Normal Affect Results - Vital Signs Recent Vital Signs: Last Vital Signs Temp 98.2 F 08/29/18 07:49 Pulse 92 H 08/29/18 14:44 Resp 20 08/29/18 07:49 BP 132/72 08/29/18 14:44 Pulse Ox 98 08/29/18 07:49 - Labs Result Diagrams: 08/29/18 06:28 08/29/18 06:28 Labs: Laboratory Results - last 24 hr 08/28/18 08/28/18 08/29/18 16:11 21:04 06:17 WBC RBC Hgb Hct MCV MCH MCHC RDW Plt Count Sodium Potassium Chloride Carbon Dioxide Anion Gap BUN Creatinine Est GFR ( Amer) Est GFR (Non-Af Amer) POC Glucose (mg/dL) 121 H 147 H 157 H Random Glucose Calcium 08/29/18 08/29/18 08/29/18 06:28 06:28 11:11 WBC 6.0 RBC 2.76 L Hgb 8.2 L Hct 25.0 L MCV 90.8 MCH 29.6 MCHC 32.6 L RDW 20.1 H Plt Count 150 Sodium 138 Potassium 4.4 Chloride 100 Carbon Dioxide 31 H Anion Gap 11 BUN 26 H Creatinine 1.8 H Est GFR ( Amer) 47 Est GFR (Non-Af Amer) 39 POC Glucose (mg/dL) 134 H Random Glucose 150 H Calcium 9.2 Assessment & Plan (1) DEVIN (acute kidney injury) Assessment and Plan: Appears to have acute kidney injury etiology is not clear most likely element of dehydration causing acute kidney injury however we will have to look at the latest medication that he was receiving in the other hospital what antibiotics he was given and the dose and whether this may be late effect to that medication is not clear? ReCommendation IV fluid normal saline spot urine for sodium osmolarity and creatinine Spot urine for eosinophils Avoid nonsteroidal anti-inflammatory drugs and nephrotoxic drug if needed antibiotics consider GFR adjustment thanks For this interesting case we will follow-up Status: Acute (2) Anemia Status: Acute Priority: Low (3) Diabetes mellitus Status: Chronic Priority: Medium (4) Hypertension Status: Chronic Priority: Medium
[2018-08-29] MEDS: Sodium Chloride 0.9% 1,000 ML IV SCH ×4 (16:34→22:18)
[2018-08-29 17:48] LABS: SQUAMOUS EPITHIAL < 1 /hpf (0-5); URINE BILIRUBIN NEGATIVE (NEGATIVE); URINE BLOOD SMALL (NEGATIVE); URINE CLARITY CLEAR (Clear); URINE COLOR YELLOW (YELLOW); URINE GLUCOSE (UA) NEG (NEGATIVE); URINE LEUKOCYTE ESTERASE NEG Leu/uL (Negative); URINE PROTEIN NEGATIVE (NEGATIVE); URINE UROBILINOGEN 0.2-1.0 mg/dL (0.2-1.0)
[2018-08-29 18:08] LABS: CREATININE, RANDOM URINE 46.9 mg/dL
[2018-08-29] MEDS: Insulin Detemir 100 Units/ml Inj SC SCH (22:09)
[2018-08-30] MEDS: Sodium Chloride 0.9% 1,000 ML IV SCH ×5 (02:41→23:01)
[2018-08-30] MEDS: Silver Sulfadiazine 1% Cream (20 gm) TOP SCH ×2 (06:11→17:10)
[2018-08-30] MEDS: Insulin Lispro (humaLOG) 100 Units/ml Inj SC SCH ×4 (06:30→21:00)
[2018-08-30 07:09] LABS: CALCIUM 8.6 mg/dL (8.4-10.2)
[2018-08-30] MEDS: Enoxaparin 40 mg Syringe SC SCH (08:21)
[2018-08-30] MEDS: Pantoprazole 40 mg EC Tab PO SCH (08:23)
[2018-08-30] MEDS: GlipiZIDE 10 mg SR Tab PO SCH (08:23)
[2018-08-30] MEDS: Bisacodyl 5mg EC Tab PO SCH (08:23)
[2018-08-30] MEDS ORDERED: Sodium Chloride 0.9% 1,000 ML IV SCH (10:55)
[2018-08-30] MEDS ORDERED: Insulin Detemir 100 Units/ml Inj SC STA (20:52)
--- NOTE | 2018-08-30 23:14 | CP.PCM.PN ---
Subjective - Date & Time of Evaluation Date of Evaluation: 08/30/18 Time of Evaluation: 23:13 - Subjective Subjective: renal follow up note vitals reviewed heent normal op moist no jvd skin nrmal s1s2 present no resp dsitress abd soft right aka ao times 3 ruth/prerenal/aka/sarcome/dm/htn cr worse today, agree with increasing fluids check cpk levels lytes reviewed monitor UOP agree with stopping metformin d/w nursing bedside Objective - Vital Signs/Intake and Output Vital Signs (last 24 hours): Temp Pulse Resp BP Pulse Ox 97.0 F L 79 20 143/70 98 08/30/18 20:00 08/30/18 20:00 08/30/18 20:00 08/30/18 20:00 08/30/18 20:00 Intake and Output: 08/30/18 08/31/18 18:59 06:59 Intake Total 1800 Output Total 2000 Balance -200 - Medications Medications: Current Medications Albuterol (Ventolin Hfa 90 Mcg/Actuation (8 G)) 1 puff IH QID PRN PRN Reason: Shortness of Breath Atorvastatin Calcium (Lipitor) 10 mg PO HS [facility] Last Admin: 08/30/18 21:22 Dose: 10 mg Bisacodyl (Dulcolax) 5 mg PO DAILY [facility] Last Admin: 08/30/18 08:23 Dose: 5 mg Clonidine HCl (Catapres) 0.1 mg PO 1400 [facility] Last Admin: 08/30/18 13:10 Dose: 0.1 mg Docusate Sodium (Colace) 300 mg PO DAILY [facility] Last Admin: 08/30/18 08:23 Dose: 300 mg Enoxaparin Sodium (Lovenox) 40 mg SC DAILY [facility]; Protocol Last Admin: 08/30/18 08:21 Dose: 40 mg Ferrous Sulfate (Feosol) 325 mg PO BID [facility] Last Admin: 08/30/18 17:11 Dose: 325 mg Gabapentin (Neurontin) 300 mg PO Q8 [facility] Last Admin: 08/30/18 21:22 Dose: 300 mg Glipizide (Glucotrol Xl) 10 mg PO DAILY [facility] Sodium Chloride (Sodium Chloride 0.9%) 1,000 mls @ 200 mls/hr IV .Q5H [facility] Stop: 08/31/18 18:13 Last Admin: 08/30/18 23:01 Dose: 200 mls/hr Insulin Detemir (Levemir) 50 units SC [facility] Last Admin: 08/29/18 22:09 Dose: 50 units Insulin Human Lispro (Humalog) 0 units SC [facility]; Protocol Last Admin: 08/30/18 21:00 Dose: Not Given Lorazepam (Ativan) 0.5 mg PO Q8H PRN PRN Reason: Anxiety Oxycodone HCl (Oxycodone Immediate Release Tab) 5 mg PO Q4 PRN PRN Reason: Pain, moderate (4-7) Last Admin: 08/28/18 09:09 Dose: 5 mg Oxycodone HCl (Oxycodone Immediate Release Tab) 10 mg PO Q4 PRN PRN Reason: Pain, severe (8-10) Last Admin: 08/27/18 13:21 Dose: 10 mg Pantoprazole Sodium (Protonix Ec Tab) 40 mg PO DAILY [facility] Last Admin: 08/30/18 08:23 Dose: 40 mg Sennosides (Senokot Tab) 17.2 mg PO [facility] Last Admin: 08/30/18 21:23 Dose: 17.2 mg Silver Sulfadiazine (Silvadene 1% 20 Gm) 1 ea TOP 0600,1800 [facility] Last Admin: 08/30/18 17:10 Dose: 1 each Sitagliptin Phosphate (Januvia) 50 mg PO DAILY [facility] - Labs Labs: 08/29/18 06:28 08/30/18 05:55 PT 12.3 Seconds (9.8-13.1) 08/26/18 06:00 INR 1.1 08/26/18 06:00 APTT 34.2 Seconds (25.6-37.1) 08/26/18 06:00
[2018-08-31] MEDS: Sodium Chloride 0.9% 1,000 ML IV SCH ×5 (04:00→19:48)
[2018-08-31] MEDS: Silver Sulfadiazine 1% Cream (20 gm) TOP SCH ×2 (06:07→17:00)
[2018-08-31] MEDS: Insulin Lispro (humaLOG) 100 Units/ml Inj SC SCH ×4 (06:41→21:00)
[2018-08-31 07:15] LABS: CALCIUM 7.9 mg/dL (8.4-10.2)
[2018-08-31] MEDS ORDERED: GlipiZIDE 10 mg SR Tab PO SCH (09:00)
[2018-08-31] MEDS: Pantoprazole 40 mg EC Tab PO SCH (09:11)
[2018-08-31] MEDS: Bisacodyl 5mg EC Tab PO SCH (09:11)
[2018-08-31] MEDS: Enoxaparin 40 mg Syringe SC SCH (09:13)
[2018-08-31 12:14] LABS: URINE BILIRUBIN NEGATIVE (NEGATIVE); URINE BLOOD SMALL (NEGATIVE); URINE CLARITY CLEAR (Clear); URINE COLOR STRAW (YELLOW); URINE GLUCOSE (UA) NEG (NEGATIVE); URINE LEUKOCYTE ESTERASE NEG Leu/uL (Negative); URINE PROTEIN NEGATIVE (NEGATIVE); URINE UROBILINOGEN 0.2-1.0 mg/dL (0.2-1.0)
[2018-08-31 14:18] LABS: SQUAMOUS EPITHIAL 2 /hpf (0-5); URINE AMORPHOUS SEDIMENT FEW /ul (<OCC); URINE BACTERIA OCC (<OCC)
[2018-08-31 15:10] LABS: CREATININE, RANDOM URINE 30.6 mg/dL
--- NOTE | 2018-08-31 17:27 | CP.PCM.PN ---
Subjective - Date & Time of Evaluation Date of Evaluation: 08/31/18 Time of Evaluation: 17:25 - Subjective Subjective: renal follow up note I&Os reviewed, good urine output no events overnight vitals reviewed heent normal op moist no jvd skin nrmal s1s2 present no resp dsitress abd soft right aka ao times 3 ruth/prerenal/aka/sarcome/dm/htn cr worse today, \unclear etiology, his cr on discharge from [facility] on 08/25 was normal at 0.7 and now has ruth urine studies unremarkable not on any nephrotoxic abx , no recent chemoc i have ordered repeat urie pr/cr ratio has hx of multiple kidneys stones ( spoke to over phone), get a ct scan without contrast monitor UOP i have stopped PPI check urine eos i have decreased dsoe of gabapentin may need renal biopsy if no other etiology is found check complements levels d/w nursing bedside Objective - Vital Signs/Intake and Output Vital Signs (last 24 hours): Temp Pulse Resp BP Pulse Ox 97.7 F 81 20 154/72 H 98 08/31/18 07:39 08/31/18 14:08 08/31/18 07:39 08/31/18 14:08 08/31/18 07:39 Intake and Output: 08/31/18 08/31/18 06:59 18:59 Intake Total 3040 Output Total 1800 Balance 1240 - Medications Medications: Current Medications Albuterol (Ventolin Hfa 90 Mcg/Actuation (8 G)) 1 puff IH QID PRN PRN Reason: Shortness of Breath Atorvastatin Calcium (Lipitor) 10 mg PO HS [facility] Last Admin: 08/30/18 21:22 Dose: 10 mg Bisacodyl (Dulcolax) 5 mg PO DAILY [facility] Last Admin: 08/31/18 09:11 Dose: 5 mg Clonidine HCl (Catapres) 0.1 mg PO 1400 [facility] Last Admin: 08/31/18 14:08 Dose: 0.1 mg Docusate Sodium (Colace) 300 mg PO DAILY [facility] Last Admin: 08/31/18 09:11 Dose: 300 mg Enoxaparin Sodium (Lovenox) 40 mg SC DAILY [facility]; Protocol Last Admin: 08/31/18 09:13 Dose: 40 mg Ferrous Sulfate (Feosol) 325 mg PO BID [facility] Last Admin: 08/31/18 16:58 Dose: 325 mg Gabapentin (Neurontin) 300 mg PO BID [facility] Last Admin: 08/31/18 16:58 Dose: 300 mg Sodium Chloride (Sodium Chloride 0.9%) 1,000 mls @ 150 mls/hr IV .Q6H40M [facility] Stop: 08/31/18 18:13 Last Admin: 08/31/18 16:57 Dose: 150 mls/hr Insulin Detemir (Levemir) 50 units SC [facility] Last Admin: 08/29/18 22:09 Dose: 50 units Insulin Human Lispro (Humalog) 0 units SC [facility]; Protocol Last Admin: 08/31/18 16:57 Dose: 2 unit Lorazepam (Ativan) 0.5 mg PO Q8H PRN PRN Reason: Anxiety Oxycodone HCl (Oxycodone Immediate Release Tab) 5 mg PO Q4 PRN PRN Reason: Pain, moderate (4-7) Last Admin: 08/28/18 09:09 Dose: 5 mg Oxycodone HCl (Oxycodone Immediate Release Tab) 10 mg PO Q4 PRN PRN Reason: Pain, severe (8-10) Last Admin: 08/27/18 13:21 Dose: 10 mg Sennosides (Senokot Tab) 17.2 mg PO [facility] Last Admin: 08/30/18 21:23 Dose: 17.2 mg Silver Sulfadiazine (Silvadene 1% 20 Gm) 1 ea TOP 0600,1800 [facility] Last Admin: 08/31/18 17:00 Dose: 1 each - Labs Labs: 08/29/18 06:28 08/31/18 06:10 PT 12.3 Seconds (9.8-13.1) 08/26/18 06:00 INR 1.1 08/26/18 06:00 APTT 34.2 Seconds (25.6-37.1) 08/26/18 06:00
--- NOTE | 2018-08-31 17:42 | CT ---
Date of service: 08/31/2018 PROCEDURE: CT Abdomen and Pelvis without intravenous contrast HISTORY: DEVIN with history of stones COMPARISON: Comparison made with prior CT scan of the chest dated 09/15/2015 which image the upper abdomen. Which partially imaged the upper abdomen dated 09/15/2015. TECHNIQUE: Contiguous helical/transaxial sections of the abdomen pelvis performed without oral or intravenous contrast material. Additional 2D sagittal and coronal reformats generated. Radiation dose: Total exam DLP = 866.95 mGy-cm. This CT exam was performed using one or more of the following dose reduction techniques: Automated exposure control, adjustment of the mA and/or kV according to patient size, and/or use of iterative reconstruction technique. FINDINGS: The note that the right anterolateral border of the abdomen has been excluded from the film due to large body habitus. LOWER THORAX: The heart size is borderline enlarged. Small pericardial effusion. There is a small hiatal hernia. Small right and tiny left-sided effusions with mild bibasilar atelectasis. Curvilinear radiopaque density in the right posterior sulcus of uncertain etiology although mass in this location on prior studies no longer visible. Changes could represent postoperative sequela. Clinical correlation with history is recommended. There is round/elliptical shaped well-circumscribed low-attenuation masslike density in the right middle lobe with Hounsfield units ranging from the mid negative single digits to the mid negative teens. This could represent a loculated pleural effusion. Clinical correlation recommended LIVER: The liver is mildly enlarged measuring just over 19 cm in CC dimension. Small amount of perihepatic ascites present. No obvious hepatic masses or collections seen on this noncontrast study. Moderate diffuse fatty infiltration. GALLBLADDER AND BILE DUCTS: Gallbladder is physiologically distended. No evidence of intraluminal gallbladder calculi. PANCREAS: Pancreas appears atrophic and fatty replaced. No obvious pancreatic masses or collections identified on this noncontrast study. SPLEEN: Spleen exhibits normal size and attenuation pattern without mass collection or calcification. ADRENALS: There are no adrenal lesions seen. KIDNEYS AND URETERS: Kidneys exhibit relatively symmetric size. There are at least 2 nonobstructing calcifications seen in the midpole collecting system right kidney the largest measuring approximately 4.9 mm.. Additionally, to a 3 small calcifications also noted in the lower pole collecting system right kidney the largest measuring 5 mm. There is a small approximately 4.7 mm calculus in the right UPJ region with very mild dilatation of the right renal pelvis and proximal ureter. The ureter distal to the calculus does not exhibit significant dilatation.. Few tiny calcifications seen in the lower pole collecting system left kidney. Additionally, there is a small approximately 5.5 mm calculus in the left UPJ region with mild dilatation of the left renal pelvis. The ureter distal to this calculus exhibits relatively normal caliber. VASCULATURE: Unremarkable. No aortic aneurysm. Mild aortic atherosclerotic calcification or mural plaque present. BOWEL: Evaluation of the bowel is somewhat limited due to the lack of oral contrast. Stomach is partially distended with food debris liquid and air. Visualized loops of small bowel exhibit normal contour and caliber. No evidence of acute mechanical small bowel obstruction on. Note however that the portions of the small bowel in the right anterolateral mid and right anterolateral lower abdomen have been excluded from the film due to very large body habitus.. [id number] amount of stool seen throughout the remaining colon suggesting mild fecal retention/constipation. Minimal circumferential wall thickening of the rectum likely due to collapse however follow-up colonoscopy could be performed if clinically indicated APPENDIX: Appendix is not positively identified. PERITONEUM: As mentioned above, there is a small amount of perihepatic ascites. Tiny amount of ascites seen extending inferiorly into the paracolic gutters. LYMPH NODES: Unremarkable. No enlarged lymph nodes. BLADDER: The urinary bladder is incompletely distended with minimal wall thickening. REPRODUCTIVE: Prostate gland unremarkable. BONES: Minor multilevel degenerative spondylosis of the lower thoracic and lumbar spine. There are no acute compression fractures no retropulsed fragments. OTHER FINDINGS: None. IMPRESSION: Small right-sided effusion and minor right basilar atelectasis. Tiny left effusion minor left basilar atelectasis. Curvilinear radiopaque density right posterior sulcus noted. Prior CT scan of the chest demonstrated a soft tissue mass in this location which is no longer visible and therefore these changes could be postoperative. Clinical correlation recommended. Suspect loculated fluid collection right middle lobe region. Clinical correlation recommended. Hepatomegaly with moderate fatty hepatic infiltration. Small amount of perihepatic ascites. Tiny amount of ascites fluid seen extending inferiorly along the paracolic gutters. Multiple small bilateral renal calculi with small calcifications seen in both UPJ regions with mild dilatation of the right and left renal pelves. Mild circumferential wall thickening of the rectum likely due to incomplete distention however clinical correlation recommended to determine whether follow-up colonoscopy is warranted.
[2018-08-31] MEDS: oxyCODONE 5 mg Immediate Release Tab PO PRN (19:45)
[2018-08-31] MEDS: Insulin Detemir 100 Units/ml Inj SC SCH (22:10)
[2018-09-01] MEDS: Silver Sulfadiazine 1% Cream (20 gm) TOP SCH ×2 (06:08→17:46)
[2018-09-01] MEDS: Insulin Lispro (humaLOG) 100 Units/ml Inj SC SCH ×4 (06:30→21:21)
[2018-09-01 06:54] LABS: HEMOGLOBIN 7.4 g/dL (12.0-18.0); MEAN CELL VOLUME 90.3 fl (80.0-94.0); MEAN CORPUSCULAR HEMOGLOBIN 28.9 pg (27.0-31.0); RBC 2.56 Mil/uL (4.40-5.90); RED CELL DISTRIBUTION WIDTH 19.2 % (11.5-14.5); WHITE BLOOD COUNT 7.1 K/uL (4.8-10.8)
[2018-09-01] MEDS: Enoxaparin 40 mg Syringe SC SCH (09:05)
[2018-09-01] MEDS: Bisacodyl 5mg EC Tab PO SCH (09:08)
[2018-09-01] MEDS: Sodium Chloride 0.9% 1,000 ML IV SCH (09:09)
[2018-09-01 09:53] LABS: CALCIUM 7.5 mg/dL (8.4-10.2)
--- NOTE | 2018-09-01 09:58 | CP.PCM.PN ---
Subjective - Date & Time of Evaluation Date of Evaluation: 09/01/18 Time of Evaluation: 10:30 - Subjective Subjective: Patient seen and examined bedside . Feeling generalized weakness today, unable to participate with PT . Hgb noted to be 7.4 today and Cr 3.5 No acute issues overnight. Able to void freely Objective - Vital Signs/Intake and Output Vital Signs (last 24 hours): Temp Pulse Resp BP Pulse Ox 98.8 F 80 22 137/71 99 09/01/18 08:00 09/01/18 08:00 09/01/18 08:00 09/01/18 08:00 09/01/18 08:00 Intake and Output: 09/01/18 09/01/18 06:59 18:59 Intake Total 2150 Output Total 2100 Balance 50 - Medications Medications: Current Medications Albuterol (Ventolin Hfa 90 Mcg/Actuation (8 G)) 1 puff IH QID PRN PRN Reason: Shortness of Breath Atorvastatin Calcium (Lipitor) 10 mg PO [facility] Last Admin: 08/31/18 21:03 Dose: 10 mg Bisacodyl (Dulcolax) 5 mg PO DAILY [facility] Last Admin: 09/01/18 09:08 Dose: 5 mg Clonidine HCl (Catapres) 0.1 mg PO 1400 [facility] Last Admin: 08/31/18 14:08 Dose: 0.1 mg Docusate Sodium (Colace) 300 mg PO DAILY [facility] Last Admin: 09/01/18 09:04 Dose: 300 mg Enoxaparin Sodium (Lovenox) 40 mg SC DAILY [facility]; Protocol Last Admin: 09/01/18 09:05 Dose: 40 mg Ferrous Sulfate (Feosol) 325 mg PO BID [facility] Last Admin: 09/01/18 09:04 Dose: 325 mg Gabapentin (Neurontin) 300 mg PO BID [facility] Last Admin: 09/01/18 09:08 Dose: 300 mg Sodium Chloride (Sodium Chloride 0.9%) 1,000 mls @ 75 mls/hr IV .[id number] [facility] Stop: 09/01/18 19:29 Last Admin: 09/01/18 09:09 Dose: 75 mls/hr Insulin Detemir (Levemir) 25 units SC [facility] Last Admin: 08/31/18 22:10 Dose: 25 units Insulin Human Lispro (Humalog) 0 units SC [facility]; Protocol Last Admin: 09/01/18 06:30 Dose: Not Given Lorazepam (Ativan) 0.5 mg PO Q8H PRN PRN Reason: Anxiety Oxycodone HCl (Oxycodone Immediate Release Tab) 5 mg PO Q4 PRN PRN Reason: Pain, moderate (4-7) Last Admin: 08/28/18 09:09 Dose: 5 mg Oxycodone HCl (Oxycodone Immediate Release Tab) 10 mg PO Q4 PRN PRN Reason: Pain, severe (8-10) Last Admin: 08/31/18 19:45 Dose: 10 mg Sennosides (Senokot Tab) 17.2 mg PO HS [facility] Last Admin: 08/31/18 21:03 Dose: 17.2 mg Silver Sulfadiazine (Silvadene 1% 20 Gm) 1 ea TOP 0600,1800 [facility] Last Admin: 09/01/18 06:08 Dose: 1 each - Labs Labs: 09/01/18 05:45 09/01/18 09:30 PT 12.3 Seconds (9.8-13.1) 08/26/18 06:00 INR 1.1 08/26/18 06:00 APTT 34.2 Seconds (25.6-37.1) 08/26/18 06:00 - Constitutional Appears: Non-toxic, No Acute Distress - Head Exam Head Exam: ATRAUMATIC, NORMAL INSPECTION, NORMOCEPHALIC - Eye Exam Eye Exam: EOMI, Normal appearance, PERRL Pupil Exam: NORMAL ACCOMODATION - ENT Exam ENT Exam: Mucous Membranes Moist, Normal Exam - Neck Exam Neck Exam: Full ROM, Normal Inspection - Respiratory Exam Respiratory Exam: Clear to Ausculation Bilateral, NORMAL BREATHING PATTERN. absent: Rales, Rhonchi, Wheezes, Respiratory Distress - Cardiovascular Exam Cardiovascular Exam: REGULAR RHYTHM, +S1, +S2. absent: JVD - GI/Abdominal Exam GI & Abdominal Exam: Soft, Normal Bowel Sounds. absent: Distended, Guarding, Rebound - Rectal Exam Rectal Exam: Deferred - Extremities Exam Additional comments: RLE AKA stump with sutures to surgical incision, clean and intact - Back Exam Back Exam: NORMAL INSPECTION - Neurological Exam Neurological Exam: Alert, Awake, CN II-XII Intact, Oriented x3 - Psychiatric Exam Psychiatric exam: Normal Affect - Skin Skin Exam: Dry, Warm Assessment and Plan - Assessment and Plan (Free Text) Assessment: 58 yo male with history of Sarcoma of the right leg brought in from [facility] after undergoing right AKA on 08/18/2018 for PT. Today feeling very weak unable to participate with PT. Hgb 7.4 today 1. Anemia most likely anemia of acute blood loss secondary to recent surgery Hgb 7.4 will transfuse 2 unit PRBC today since patient has symptomatic anemia on Ferrous sulfate 2.Acute kidney injury unclear etiology Cr 3.5 today nephrology consult appreciated continue IVF NS @ 75 cc/hr Repeat BMP 3. Sarcoma post right AKA.Stump and surgical incision is clean and healing well continue PT/OT Continue pain management Dr Anderson on physiatry consult PT held today since patient is feeling weak 4. DM2 controlled on Levemir 25 units SC HS Continue accuchecks , Insulin coverage and diabetic diet 5. HTN BP stable continue Clonidine 6. DVT prophylaxis continue Lovenox
--- NOTE | 2018-09-01 11:12 | CP.PCM.PN ---
Subjective - Date & Time of Evaluation Date of Evaluation: 09/01/18 Time of Evaluation: 11:10 - Subjective Subjective: Patient conscious complaining of weakness and tiredness hemoglobin dropping Although no overt GI bleeding noted as of now Serum creatinine inching up very slowly latest 3.5 at the bedside Objective - Vital Signs/Intake and Output Vital Signs (last 24 hours): Temp Pulse Resp BP Pulse Ox 98.8 F 80 22 137/71 99 09/01/18 08:00 09/01/18 08:00 09/01/18 08:00 09/01/18 08:00 09/01/18 08:00 Intake and Output: 09/01/18 09/01/18 06:59 18:59 Intake Total 2150 Output Total 2100 Balance 50 - Medications Medications: Current Medications Albuterol (Ventolin Hfa 90 Mcg/Actuation (8 G)) 1 puff IH QID PRN PRN Reason: Shortness of Breath Atorvastatin Calcium (Lipitor) 10 mg PO [facility] Last Admin: 08/31/18 21:03 Dose: 10 mg Bisacodyl (Dulcolax) 5 mg PO DAILY [facility] Last Admin: 09/01/18 09:08 Dose: 5 mg Clonidine HCl (Catapres) 0.1 mg PO 1400 [facility] Last Admin: 08/31/18 14:08 Dose: 0.1 mg Docusate Sodium (Colace) 300 mg PO DAILY [facility] Last Admin: 09/01/18 09:04 Dose: 300 mg Enoxaparin Sodium (Lovenox) 40 mg SC DAILY [facility]; Protocol Last Admin: 09/01/18 09:05 Dose: 40 mg Ferrous Sulfate (Feosol) 325 mg PO BID [facility] Last Admin: 09/01/18 09:04 Dose: 325 mg Gabapentin (Neurontin) 300 mg PO BID [facility] Last Admin: 09/01/18 09:08 Dose: 300 mg Sodium Chloride (Sodium Chloride 0.9%) 1,000 mls @ 75 mls/hr IV .[id number] [facility] Stop: 09/01/18 19:29 Last Admin: 09/01/18 09:09 Dose: 75 mls/hr Insulin Detemir (Levemir) 25 units SC [facility] Last Admin: 08/31/18 22:10 Dose: 25 units Insulin Human Lispro (Humalog) 0 units SC [facility]; Protocol Last Admin: 09/01/18 06:30 Dose: Not Given Lorazepam (Ativan) 0.5 mg PO Q8H PRN PRN Reason: Anxiety Oxycodone HCl (Oxycodone Immediate Release Tab) 5 mg PO Q4 PRN PRN Reason: Pain, moderate (4-7) Last Admin: 08/28/18 09:09 Dose: 5 mg Oxycodone HCl (Oxycodone Immediate Release Tab) 10 mg PO Q4 PRN PRN Reason: Pain, severe (8-10) Last Admin: 08/31/18 19:45 Dose: 10 mg Sennosides (Senokot Tab) 17.2 mg PO HS [facility] Last Admin: 08/31/18 21:03 Dose: 17.2 mg Silver Sulfadiazine (Silvadene 1% 20 Gm) 1 ea TOP 0600,1800 [facility] Last Admin: 09/01/18 06:08 Dose: 1 each - Labs Labs: 09/01/18 05:45 09/01/18 09:30 PT 12.3 Seconds (9.8-13.1) 08/26/18 06:00 INR 1.1 08/26/18 06:00 APTT 34.2 Seconds (25.6-37.1) 08/26/18 06:00 - Constitutional Appears: No Acute Distress - Eye Exam Eye Exam: Conjunctival injection - ENT Exam ENT Exam: Mucous Membranes Moist - Neck Exam Neck Exam: absent: Lymphadenopathy - Respiratory Exam Respiratory Exam: NORMAL BREATHING PATTERN. absent: Chest Wall Tenderness - Cardiovascular Exam Cardiovascular Exam: absent: Gallop, JVD, Rubs - GI/Abdominal Exam GI & Abdominal Exam: Soft, Normal Bowel Sounds - Extremities Exam Extremities Exam: absent: Calf Tenderness - Back Exam Back Exam: absent: CVA tenderness (L), CVA tenderness (R) - Neurological Exam Neurological Exam: Alert - Psychiatric Exam Psychiatric exam: Normal Affect - Skin Skin Exam: absent: Cyanosis Assessment and Plan (1) DEVIN (acute kidney injury) Assessment & Plan: Acute kidney injury Etiology not clear patient appears to have a dropping in his hemoglobin and also according to the he lost a lot of blood in the other hospital during the amputation so I am not sure if he has hypotensive episode at that time and compromise his renal perfusion? Eosinophil in the urine negative No significant proteinuria Diabetes mellitus Hypertension Status post above-knee amputation for sarcoma Rule out active GI bleeding? With a dropping hemoglobin My recommendation Patient may need blood transfusion Consider CAT scan of the abdomen without IV contrast Status: Acute (2) Anemia Status: Acute (3) Diabetes mellitus Status: Chronic (4) Hypertension Status: Chronic
[2018-09-01 11:17] LABS: COMPLEMENT C4 27.1 mg/dL (14.0-44.0)
--- NOTE | 2018-09-01 18:03 | CP.PCM.PN ---
Subjective - Date & Time of Evaluation Date of Evaluation: 09/01/18 Time of Evaluation: 18:02 - Subjective Subjective: Patient seen in the room present Hgb had gone down to below 8 1 unit PRBC given and a second is set denies pain no sob + constipation but feels ok and doesn't want extra meds continue current care Objective - Vital Signs/Intake and Output Vital Signs (last 24 hours): Temp Pulse Resp BP Pulse Ox 98.8 F 79 18 147/76 99 09/01/18 17:40 09/01/18 17:40 09/01/18 17:40 09/01/18 17:40 09/01/18 08:00 Intake and Output: 09/01/18 09/01/18 06:59 18:59 Intake Total 2150 375 Output Total 2100 Balance 50 375 - Medications Medications: Current Medications Albuterol (Ventolin Hfa 90 Mcg/Actuation (8 G)) 1 puff IH QID PRN PRN Reason: Shortness of Breath Atorvastatin Calcium (Lipitor) 10 mg PO [facility] Last Admin: 08/31/18 21:03 Dose: 10 mg Bisacodyl (Dulcolax) 5 mg PO DAILY [facility] Last Admin: 09/01/18 09:08 Dose: 5 mg Clonidine HCl (Catapres) 0.1 mg PO 1400 [facility] Last Admin: 09/01/18 13:54 Dose: 0.1 mg Docusate Sodium (Colace) 300 mg PO DAILY [facility] Last Admin: 09/01/18 09:04 Dose: 300 mg Enoxaparin Sodium (Lovenox) 40 mg SC DAILY [facility]; Protocol Last Admin: 09/01/18 09:05 Dose: 40 mg Ferrous Sulfate (Feosol) 325 mg PO BID [facility] Last Admin: 09/01/18 16:42 Dose: 325 mg Gabapentin (Neurontin) 300 mg PO BID [facility] Last Admin: 09/01/18 16:41 Dose: 300 mg Sodium Chloride (Sodium Chloride 0.9%) 1,000 mls @ 75 mls/hr IV .[id number] [facility] Stop: 09/01/18 19:29 Last Admin: 09/01/18 09:09 Dose: 75 mls/hr Insulin Detemir (Levemir) 25 units SC [facility] Last Admin: 08/31/18 22:10 Dose: 25 units Insulin Human Lispro (Humalog) 0 units SC [facility]; Protocol Last Admin: 09/01/18 16:40 Dose: Not Given Lorazepam (Ativan) 0.5 mg PO Q8H PRN PRN Reason: Anxiety Oxycodone HCl (Oxycodone Immediate Release Tab) 5 mg PO Q4 PRN PRN Reason: Pain, moderate (4-7) Last Admin: 08/28/18 09:09 Dose: 5 mg Oxycodone HCl (Oxycodone Immediate Release Tab) 10 mg PO Q4 PRN PRN Reason: Pain, severe (8-10) Last Admin: 08/31/18 19:45 Dose: 10 mg Sennosides (Senokot Tab) 17.2 mg PO HS [facility] Last Admin: 08/31/18 21:03 Dose: 17.2 mg Silver Sulfadiazine (Silvadene 1% 20 Gm) 1 ea TOP 0600,1800 [facility] Last Admin: 09/01/18 17:46 Dose: 1 each - Labs Labs: 09/01/18 05:45 09/01/18 09:30 PT 12.3 Seconds (9.8-13.1) 08/26/18 06:00 INR 1.1 08/26/18 06:00 APTT 34.2 Seconds (25.6-37.1) 08/26/18 06:00
[2018-09-01] MEDS: Insulin Detemir 100 Units/ml Inj SC SCH (21:15)
[2018-09-02] MEDS ORDERED: Lactated Ringer's 1,000 ML IV SCH (05:30)
[2018-09-02 05:43] LABS: HEMOGLOBIN 9.4 g/dL (12.0-18.0); MEAN CELL VOLUME 89.3 fl (80.0-94.0); MEAN CORPUSCULAR HEMOGLOBIN 29.5 pg (27.0-31.0); RBC 3.19 Mil/uL (4.40-5.90); RED CELL DISTRIBUTION WIDTH 17.9 % (11.5-14.5); WHITE BLOOD COUNT 5.6 K/uL (4.8-10.8)
[2018-09-02 05:59] LABS: CALCIUM 8.7 mg/dL (8.4-10.2)
[2018-09-02] MEDS: Silver Sulfadiazine 1% Cream (20 gm) TOP SCH ×2 (06:45→17:17)
[2018-09-02] MEDS: Insulin Lispro (humaLOG) 100 Units/ml Inj SC SCH ×4 (06:46→21:28)
[2018-09-02] MEDS: Bisacodyl 5mg EC Tab PO SCH (08:46)
[2018-09-02] MEDS: Enoxaparin 40 mg Syringe SC SCH (08:47)
[2018-09-02 10:51] LABS: ALB/GLOB RATIO 0.9 (1.0-2.1); ALBUMIN 3.5 g/dL (3.5-5.0); CALCIUM 8.9 mg/dL (8.4-10.2)
--- NOTE | 2018-09-02 11:03 | CP.PCM.PN ---
Subjective - Date & Time of Evaluation Date of Evaluation: 09/02/18 Time of Evaluation: 11:03 - Subjective Subjective: Patient embedded the reported that he has some wheezing during the night during transfusion subsided Complain of less weakness after transfusion Vital signs noted to be stable Objective - Vital Signs/Intake and Output Vital Signs (last 24 hours): Temp Pulse Resp BP Pulse Ox 98.2 F 76 19 154/82 H 98 09/02/18 10:25 09/02/18 10:25 09/02/18 10:25 09/02/18 10:25 09/02/18 08:20 Intake and Output: 09/02/18 09/02/18 06:59 18:59 Intake Total 1190 Output Total 1200 Balance -10 - Medications Medications: Current Medications Albuterol (Ventolin Hfa 90 Mcg/Actuation (8 G)) 1 puff IH QID PRN PRN Reason: Shortness of Breath Atorvastatin Calcium (Lipitor) 10 mg PO HS [facility] Last Admin: 09/01/18 21:14 Dose: 10 mg Bisacodyl (Dulcolax) 5 mg PO DAILY [facility] Last Admin: 09/02/18 08:46 Dose: 5 mg Clonidine HCl (Catapres) 0.1 mg PO 1400 [facility] Last Admin: 09/01/18 13:54 Dose: 0.1 mg Docusate Sodium (Colace) 300 mg PO DAILY [facility] Last Admin: 09/02/18 08:45 Dose: 300 mg Enoxaparin Sodium (Lovenox) 40 mg SC DAILY [facility]; Protocol Last Admin: 09/02/18 08:47 Dose: 40 mg Ferrous Sulfate (Feosol) 325 mg PO BID [facility] Last Admin: 09/02/18 08:46 Dose: 325 mg Furosemide (Lasix) 40 mg PO DAILY [facility] Gabapentin (Neurontin) 300 mg PO BID [facility] Last Admin: 09/02/18 08:47 Dose: 300 mg Insulin Detemir (Levemir) 25 units SC [facility] Last Admin: 09/01/18 21:15 Dose: 25 units Insulin Human Lispro (Humalog) 0 units SC [facility]; Protocol Last Admin: 09/02/18 06:46 Dose: Not Given Lorazepam (Ativan) 0.5 mg PO Q8H PRN PRN Reason: Anxiety Oxycodone HCl (Oxycodone Immediate Release Tab) 5 mg PO Q4 PRN PRN Reason: Pain, moderate (4-7) Last Admin: 08/28/18 09:09 Dose: 5 mg Oxycodone HCl (Oxycodone Immediate Release Tab) 10 mg PO Q4 PRN PRN Reason: Pain, severe (8-10) Last Admin: 08/31/18 19:45 Dose: 10 mg Sennosides (Senokot Tab) 17.2 mg PO HS [facility] Last Admin: 09/01/18 21:15 Dose: 17.2 mg Silver Sulfadiazine (Silvadene 1% 20 Gm) 1 ea TOP 0600,1800 [facility] Last Admin: 09/02/18 06:45 Dose: 1 each - Labs Labs: 09/02/18 05:23 09/02/18 10:15 PT 12.3 Seconds (9.8-13.1) 08/26/18 06:00 INR 1.1 08/26/18 06:00 APTT 34.2 Seconds (25.6-37.1) 08/26/18 06:00 - Constitutional Appears: No Acute Distress - Eye Exam Eye Exam: Conjunctival injection - ENT Exam ENT Exam: Mucous Membranes Moist - Neck Exam Neck Exam: absent: Lymphadenopathy - Respiratory Exam Respiratory Exam: Rhonchi, NORMAL BREATHING PATTERN. absent: Chest Wall Tenderness - Cardiovascular Exam Cardiovascular Exam: absent: Gallop, JVD, Rubs - GI/Abdominal Exam GI & Abdominal Exam: Soft, Normal Bowel Sounds - Extremities Exam Extremities Exam: absent: Calf Tenderness - Back Exam Back Exam: absent: CVA tenderness (L), CVA tenderness (R) - Neurological Exam Neurological Exam: Alert - Psychiatric Exam Psychiatric exam: Anxious - Skin Skin Exam: absent: Cyanosis Assessment and Plan (1) DEVIN (acute kidney injury) Assessment & Plan: Acute kidney injury Etiology not clear patient appears to have a dropping in his hemoglobin and also according to the he lost a lot of blood in the other hospital during the amputation so I am not sure if he has hypotensive episode at that time and compromise his renal perfusion? Eosinophil in the urine negative No significant proteinuria Diabetes mellitus Hypertension Status post above-knee amputation for sarcoma Hepatomegaly and fatty liver and possible ascites on CAT scan and some pleural effusion? And some renal calculi has been reported on the CAT scan as well see the detail My recommendation Status post 2 units of blood transfused overnight Serum creatinine inching up very slowly To give Lasix 40 mg daily starting now Daily weight and intake and output Discussed with the and the patient for possible kidney biopsy because he is obese and make the procedures difficult and therefore there are hesitating to do the biopsy Complete metabolic profile now Ultrasound of the kidney stat Immune work-up C3-C4 normal Eosinophils in the urine negative DC IV fluid Discussed with the at the bedside as well as the nurse Time spent about 45 minutes Status: Acute (2) Anemia Status: Acute (3) Diabetes mellitus Status: Chronic (4) Hypertension Status: Chronic
--- NOTE | 2018-09-02 13:15 | PCM.PSYTMC ---
Acute Rehab Team Conference - - Vital Signs: Vital Signs (Last 8 Hours): Vital Signs 09/02/18 09/02/18 09/02/18 08:20 10:25 11:56 Temperature 98.2 F 98.2 F Pulse Rate 76 76 Respiratory 19 19 Rate Blood Pressure 154/82 H 154/82 H 131/79 O2 Sat by Pulse 98 Oximetry Pain: 0 - Precautions: Precautions: Fall Prevention - Medications/Other Issues: Comment: 2 Uof RBC yesterday tolerate well H/H post transfusion 9.4. States early am had a slight wheeze.Lungs ascultated now no wheeze noted lung sounds clear decrease in lower bases bilaterally. no SOB at rest. At times with increase mobility has slight SOB - Consults: Comment: Dr Brown- Renal due to elevated BUN/Creatinine 39/3.9 - Skin: Incision Site: Rt AKA I/L with sutures Dressing Status: Changed Incision: Healing Well Incision Line Treatment: Popped Blisters dry and flat and healing silvadene to blister areas with DSD and kurlex/ephraim wrap - Toileting: Toileting: Maximal Assistance - Bladder Management: Bladder Pattern: Normal Voiding Method: Bedside Commode, Urinal Bladder Management: Modified Independent - Transfers: Transfers: Contact Guard - ADL's: ADL's: Minimal Assistance - Pain Management: Other Intervention:: No complaints of pain reassess every 8 hours and prn - Patient/Family Teaching: Other Intervention:: Medication Teaching/Pain Management. Safety with transfers with self releasing seat belt. I/L care and treatment. Ephraim wrapping of residual limb. Hand Hygiene - Goals/Time Frame: Comment: as per POC - Provider: Registered Nurse:: Ember Nicole Physical Therapy - Bed Mobility Bed Mobility: Verbal Cues, Contact Guard Comment: Pt on medical hold today due to low Hgb and blood transfusion, current fxnl status documented in this Team Conference was primarily compiled from EMR PT notes dated 08/28/18, 08/29/18 and 08/30/18). bed mob. - rolling towards left with min A. -supine to sit with moderate assistance to initiate; cues to utilize elbow flexed underneath him to assist with motion. - lateral scooting transfers to lower surface with CG; assistance for WC set-up - Transfers Wheelchair to Mat: Verbal Cues, Minimal Assistance Sit to Stand: Verbal Cues, Contact Guard, Minimal Assistance Comment: sit to stand CG/min A. SPT/squat pivot min A - Ambulation Level of Assistance: Supervision, Verbal Cues, Contact Guard, Minimal Assistance Assistive Devices: Rolling Walker Orthoses: WHEELCHAIR. -mobility on level surface with BUE and LLE x 150 feet with supervision with slow speed and rest breaks prn. -brakes management with cueing for safety Comment: RW up to 16' min A -->CG/CS - Stair Negotiation Stairs: Level of Assistance: Not Tested Comment: stairs NT - ramp recommended to enter home - Standing Balance Static Stand: Contact Guard Assist Comment: as per 08/26/18 EMR - Pain Pain (assessed during therapy session): 4 Alleviating Techniques: Medication, Relaxation Techniques, Exercise, Inactivity Comment: N/A for today. Pt does c/o residual limb pain. desensitization techniques also utilized - Insight/Carryover Insight/Carryover: Good - Patient/Family Education Comment: safety, therapy goals, mobility, POC, use of call christian for safety, positioning, pre-prosthetic training, WC mobility, pain management. densensitization; contracture prevention positions, - Assessment/Plan Assessment: Pt has made progress since his last Team conference, his fxnl level fluctuates. (Please note, assessment below primarily contains information from 08/26/18 EMR note). Mr. 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 PT recommends continued skilled therapy 5-6x per week for 14-21 days to maximize safety and independence with all mobility. PT recommends home discharge at a wheelchair level with home cares therapy services and comprehensive HEP with support of and family as needed. - Goals Timeframe: 1 week Goals: preprostethic educ. (1) state 2 positioning techniques to avoid contracture. (2) demonstrates modified independence with desensitization techniques. w/c mgmt. (1) modified I with brake management. (2) modified I to propel on level surfaces x 250 feet manual WC. hop x 25 feet with RW with close supervision. SPT supervision with rolling walker. contact guard without device. sit to/from stand with RW with min A. CGA for supine to/from sit. supervision with rolling - Provider Physical Therapist:: Herlinda Mejia License Number:: [id number] Occupational Therapy - Arousal/Attention/Orientation Level of Consciousness: Awake, Alert Patient Orientation: Person, Place, Time Assessment Comment: patient on hold 09/01 secondary to Hgb 7.4, this information was compiled as per patient's last TX noted completed 08/29 - ADL/IADL Self Feeding: Set-up Help Grooming: Set-up Help Bathing-Upper Ext: Supervision Bathing-Lower Ext: Moderate Assistance, Maximum Assistance Dressing-Upper Ext: Supervision Dressing-Lower Ext: Moderate Assistance, Maximum Assistance - Sitting Balance Static Sitting: Independent without upper extremity support Dynamic Sitting: Requires supervision, Contact Guard Assist - Transfers Wheelchair to Bed Transfers: Minimal Assistance Toilet Transfers: Minimal Assistance, Moderate Assistance Tub Transfers: Moderate Assistance Comment: patient uses rw during transfers. lateral transfers complered with min A - Wheelchair Management Level of Assistance: Supervision Distance (ft.): 150 - Upper Extremity Status Right Upper Extremity Comment: WFLs Left Upper Extremity Comment: WFLs - Pain Pain (assessed during therapy session): 0 - Insight/Carryover Insight/Carryover: Good - Assessment/Plan Assessment: Pt is a 58 year old male with dx: R AKA, R leg liposarcoma. Precautions: fall precautions, DM. Pt limited by impaired overall strength, impaired activity tolerance/endurance, impaired sitting/standing balance/tolerance, impaired safety, impaired knowledge adaptive/compensatory strategies--impacing on functional performance of self care, transfers/mobility & Iadls. Pt will continue to benefit from skilled OT to address functional impairments to maximize function in self care, transfers/mobility and Iadls using adaptive/compensatory strategies @ w/c level + caregiver education, DME needs assessment. Pt continues to need frequent rest breaks with all activities. Pt continues to need encouragemet to sit up in chair dursing day. Pt will benefit from lower body dressing devices, L shoe elastic shoe laces for facilitation of lower body dressing while adhering to energy conservation strategies. Pt may benefit from psychology consult for "depressed" mood. *Goal: Intermittent Supervision w/c level - Goals Timeframe: 2 weeks Comment: *Goal: Intermittent Supervision w/c level - Provider Occupational Therapist:: Cherelle Humphrey License Number: [id number] Recreational Therapy - Participation Participation: Monitors His/Her Own Leisure Time - Attendance Attendance: 3-5 times per week - Activities Leisure Activities: Socializing - Socialization Level of Socialization: Initiates/interacts freely with care givers and peer - Diversional Time Diversional Time: watching sports, television, crafts - Assessment Assessment/Plan: Pt receives daily room visits for social support and encouragement to participate in sessions. Pt enjoys engaging in discussion with staff or peers although presents with decrease arousal to participate in recreation therapy session. Pt will benefit from participating in recreation therapy sessions to improve coping mechanisms and improve activity tolerance level. Will continue to encourage. Problems Currently Limiting Participation: pain, decrease activity tolerance level, decrease leisure awareness level Goals and Time Frame: Pt will identify three positive coping mechanisms to improve diversion from pain or anxiety by date of discharge. - Provider Therapist: Savita Hardy Nutrition - Current Diet Current Diet/Supplement/Feedings: Moderate consistent CHO Heart healthy: 2 gram Na prostat sugar free 30 ml 1 per day - Appetite Percent Meal Consumed: 50-74% - Assessment/Goals/Time Frame Assessments/Goals/Time Frame: Pt at high nutritional risk. goals: 1. Pt to consume 75-100% of meals(partially met, continue). 2. Blood glucoses to be between 70-180 mg/dl(met, continue). Follow-up due on 09/03/2018 - Provider Provider: Andreina Rodriguez Case Management - Psychosocial Assessment Support Systems: Savita Barraza () - [phone] Psychological Interventions/Needs: Patient is AAOx3 and able to verbalize needs. Discharge Concerns: Patient is a new amputee and was formerly at home at a wheelchair level with a first floor set up. Home needs a new ramp. Patient/Family Meeting: CM met with patient and rehab team. Intervention/Goal/Outcome: 1. Goal: intermittent supervision 2. Plan: home with VNS at a wheelchair level 3. order DME and wheelchair once PT has confirmed the appropriate specifications 4. continued acute rehab auth 5. continued emotional support - Discharge Plan Discharge Plan: Home with services - Provider Provider: Jackeline Nassar License Number: [id number] Rehabilitation Plan - Treatment Plan Treatment Plan: Physical Therapy, Occupational Therapy, Dietary, Patient/Family Education - Discharge Plan Estimated Date of Discharge: 09/09/18 Discharge to: Home
--- NOTE | 2018-09-02 13:18 | RAD ---
Date of service: 09/02/2018 HISTORY: congestion COMPARISON: 09/15/2015 TECHNIQUE: 1 view obtained. FINDINGS: LUNGS: No active pulmonary disease. PLEURA: No significant pleural effusion identified, no pneumothorax apparent. CARDIOVASCULAR: No aortic atherosclerotic calcification present. Normal cardiac size. Right central venous infusion port noted OSSEOUS STRUCTURES: No significant abnormalities. VISUALIZED UPPER ABDOMEN: Normal. OTHER FINDINGS: None. IMPRESSION: No active disease.
--- NOTE | 2018-09-02 13:49 | CP.PCM.PN ---
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 Has had radiation treatment. Known mets to other areas, some improved and some did not with chemo treatment. He is to continue chemo next week. Follow up with ortho 09/09/18 Had 2 units PRBCs with Hgb above 9.0 now Objective - Vital Signs/Intake and Output Vital Signs (last 24 hours): Temp Pulse Resp BP Pulse Ox 98.2 F 76 19 131/79 98 09/02/18 10:25 09/02/18 10:25 09/02/18 10:25 09/02/18 11:56 09/02/18 08:20 Intake and Output: 09/02/18 09/02/18 06:59 18:59 Intake Total 1190 Output Total 1200 Balance -10 - Medications Medications: Current Medications Albuterol (Ventolin Hfa 90 Mcg/Actuation (8 G)) 1 puff IH QID PRN PRN Reason: Shortness of Breath Atorvastatin Calcium (Lipitor) 10 mg PO HS [facility] Last Admin: 09/01/18 21:14 Dose: 10 mg Bisacodyl (Dulcolax) 5 mg PO DAILY [facility] Last Admin: 09/02/18 08:46 Dose: 5 mg Clonidine HCl (Catapres) 0.1 mg PO 1400 [facility] Last Admin: 09/01/18 13:54 Dose: 0.1 mg Docusate Sodium (Colace) 300 mg PO DAILY [facility] Last Admin: 09/02/18 08:45 Dose: 300 mg Enoxaparin Sodium (Lovenox) 40 mg SC DAILY [facility]; Protocol Last Admin: 09/02/18 08:47 Dose: 40 mg Ferrous Sulfate (Feosol) 325 mg PO BID [facility] Last Admin: 09/02/18 08:46 Dose: 325 mg Furosemide (Lasix) 40 mg PO DAILY [facility] Last Admin: 09/02/18 11:56 Dose: 40 mg Gabapentin (Neurontin) 300 mg PO BID [facility] Last Admin: 09/02/18 08:47 Dose: 300 mg Insulin Detemir (Levemir) 25 units SC [facility] Last Admin: 04/29/19 21:15 Dose: 25 units Insulin Human Lispro (Humalog) 0 units SC ACHS [facility]; Protocol Last Admin: 09/02/18 11:57 Dose: 1 unit Lorazepam (Ativan) 0.5 mg PO Q8H PRN PRN Reason: Anxiety Oxycodone HCl (Oxycodone Immediate Release Tab) 5 mg PO Q4 PRN PRN Reason: Pain, moderate (4-7) Last Admin: 08/28/18 09:09 Dose: 5 mg Oxycodone HCl (Oxycodone Immediate Release Tab) 10 mg PO Q4 PRN PRN Reason: Pain, severe (8-10) Last Admin: 08/31/18 19:45 Dose: 10 mg Sennosides (Senokot Tab) 17.2 mg PO HS [facility] Last Admin: 09/01/18 21:15 Dose: 17.2 mg Silver Sulfadiazine (Silvadene 1% 20 Gm) 1 ea TOP 0600,1800 [facility] Last Admin: 09/02/18 06:45 Dose: 1 each - Labs Labs: 09/02/18 05:23 09/02/18 10:15 PT 12.3 Seconds (9.8-13.1) 08/26/18 06:00 INR 1.1 08/26/18 06:00 APTT 34.2 Seconds (25.6-37.1) 08/26/18 06:00 - Constitutional Appears: Non-toxic, No Acute Distress - Head Exam Head Exam: ATRAUMATIC, NORMAL INSPECTION, NORMOCEPHALIC - Eye Exam Eye Exam: EOMI - ENT Exam ENT Exam: Mucous Membranes Moist - Respiratory Exam Respiratory Exam: NORMAL BREATHING PATTERN - Cardiovascular Exam Cardiovascular Exam: REGULAR RHYTHM - GI/Abdominal Exam GI & Abdominal Exam: Distended. absent: Guarding - Extremities Exam Extremities Exam: absent: Calf Tenderness (right AKA wrapped, improving) - Neurological Exam Neurological Exam: Alert, CN II-XII Intact Neuro motor strength exam: Left Upper Extremity: 5, Right Upper Extremity: 5, Left Lower Extremity: 5 - Psychiatric Exam Psychiatric exam: Normal Affect, Normal Mood - Skin Skin Exam: Warm Assessment and Plan - Assessment and Plan (Free Text) Assessment: PT/OT to continue to help increase functional independence Team conference for d/c planning Pain: controlled Vascular: no evidence of DVT GI: No evidence of constipation or diarrhea Patient continues to be an excellent acute rehabilitation candidate and will have continued pain management, PT, OT and recreational therapy to help facilitate a safe and appropriate d/c plan The patients plan was discussed in great detail in team conference. This was then discussed with the patient at length. The discussions directly impact on the patients plan of care. Please see the note for more details
[2018-09-02 14:10] LABS: OSMOLALITY,URINE 278 mosm/kg (300-1000)
[2018-09-02] MEDS: Insulin Detemir 100 Units/ml Inj SC SCH (21:23)
[2018-09-03] MEDS: Silver Sulfadiazine 1% Cream (20 gm) TOP SCH ×2 (06:33→18:14)
[2018-09-03] MEDS: Bisacodyl 5mg EC Tab PO SCH (08:39)
[2018-09-03] MEDS: Enoxaparin 40 mg Syringe SC SCH (08:41)
[2018-09-03] MEDS: Albuterol HFA 90 mcg/actuation (8 g) IH PRN (08:41)
[2018-09-03] MEDS: Insulin Lispro (humaLOG) 100 Units/ml Inj SC SCH ×4 (08:42→21:22)
[2018-09-03] MEDS: oxyCODONE 5 mg Immediate Release Tab PO PRN (10:13)
--- NOTE | 2018-09-03 10:31 | US ---
Date of service: 09/02/2018 PROCEDURE: Ultrasound of the Kidneys HISTORY: arf COMPARISON: 08/31/2018 CT exam. TECHNIQUE: Sonogram of the kidneys. FINDINGS: Findings are somewhat limited given patient's large body habitus. RIGHT KIDNEY: Measures: 12.4 x 5.2 x 6.3 cm. Normal in size, and contour and echogenicity. No definitive calculus on the right is seen on this exam. Please note the subsequent CT report which did suggest right renal calculi. No solid-appearing masses appreciated there is some mild right intra renal/extra renal pelvic fullness., solid mass lesion or hydronephrosis visualized. LEFT KIDNEY: Measures: 13.5 x 4.8 x 7.0 cm. Normal in size, and contour There are 3 hyper echogenic foci in the mid and lower pole these measure 8 x 7 x 3 mm and 6 by 2 mm and 6 x 7 x 4 mm-compatible with a non shadowing calculi. There is mention of bilateral renal calculi on the aforementioned 08/31/2018 CT study. Please note that report. No solid appearing mass lesion. Mild left intrarenal extra renal pelviectasis. OTHER FINDINGS: None. IMPRESSION: Limited exam given patient's large body habitus and bowel gas. Nevertheless there is mild bilateral pelvic a-intra and extra renal collecting system fullness. A few left renal parenchymal calculi are present/suspect there is limited shadowing however so she with this. Please note the 08/31/2018 CT study referencing bilateral renal calculi another findings a fullness in each renal pelvis in each proximal ureteral pelvic junction. Concordant results (preliminary interpretation) provided by [facility].
--- NOTE | 2018-09-03 12:25 | CP.PCM.PN ---
Subjective - Date & Time of Evaluation Date of Evaluation: 09/03/18 Time of Evaluation: 12:30 - Subjective Subjective: Patient sitting up in the chair feeling much better. His breathing improving Vital signs stable Appetite is good Objective - Vital Signs/Intake and Output Vital Signs (last 24 hours): Temp Pulse Resp BP Pulse Ox 98.1 F 72 22 140/87 98 09/03/18 08:19 09/03/18 08:19 09/03/18 08:19 09/03/18 08:40 09/03/18 08:19 Intake and Output: 09/03/18 09/03/18 06:59 18:59 Intake Total 300 Output Total 1900 Balance -1600 - Medications Medications: Current Medications Albuterol (Ventolin Hfa 90 Mcg/Actuation (8 G)) 1 puff IH QID PRN PRN Reason: Shortness of Breath Last Admin: 09/03/18 08:41 Dose: 1 puff Atorvastatin Calcium (Lipitor) 10 mg PO [facility] Last Admin: 09/02/18 21:23 Dose: 10 mg Bisacodyl (Dulcolax) 5 mg PO DAILY [facility] Last Admin: 09/03/18 08:39 Dose: 5 mg Clonidine HCl (Catapres) 0.1 mg PO 1400 [facility] Last Admin: 09/02/18 14:23 Dose: 0.1 mg Docusate Sodium (Colace) 300 mg PO DAILY [facility] Last Admin: 09/03/18 08:40 Dose: 300 mg Enoxaparin Sodium (Lovenox) 40 mg SC DAILY [facility]; Protocol Last Admin: 09/03/18 08:41 Dose: 40 mg Ferrous Sulfate (Feosol) 325 mg PO BID [facility] Last Admin: 09/03/18 08:41 Dose: 325 mg Furosemide (Lasix) 40 mg PO DAILY [facility] Last Admin: 09/03/18 08:40 Dose: 40 mg Gabapentin (Neurontin) 300 mg PO BID [facility] Last Admin: 09/03/18 08:41 Dose: 300 mg Insulin Detemir (Levemir) 25 units SC [facility] Last Admin: 09/02/18 21:23 Dose: 25 units Insulin Human Lispro (Humalog) 0 units SC [facility]; Protocol Last Admin: 09/03/18 08:42 Dose: 1 unit Lorazepam (Ativan) 0.5 mg PO Q8H PRN PRN Reason: Anxiety Oxycodone HCl (Oxycodone Immediate Release Tab) 5 mg PO Q4 PRN PRN Reason: Pain, moderate (4-7) Last Admin: 08/28/18 09:09 Dose: 5 mg Oxycodone HCl (Oxycodone Immediate Release Tab) 10 mg PO Q4 PRN PRN Reason: Pain, severe (8-10) Last Admin: 09/03/18 10:13 Dose: 10 mg Sennosides (Senokot Tab) 17.2 mg PO HS [facility] Last Admin: 09/02/18 21:23 Dose: 17.2 mg Silver Sulfadiazine (Silvadene 1% 20 Gm) 1 ea TOP 0600,1800 [facility] Last Admin: 09/03/18 06:33 Dose: 1 each - Labs Labs: 09/02/18 05:23 09/02/18 10:15 PT 12.3 Seconds (9.8-13.1) 08/26/18 06:00 INR 1.1 08/26/18 06:00 APTT 34.2 Seconds (25.6-37.1) 08/26/18 06:00 - Constitutional Appears: No Acute Distress - Eye Exam Eye Exam: Conjunctival injection - ENT Exam ENT Exam: Mucous Membranes Moist - Neck Exam Neck Exam: absent: Lymphadenopathy - Respiratory Exam Respiratory Exam: NORMAL BREATHING PATTERN. absent: Chest Wall Tenderness - Cardiovascular Exam Cardiovascular Exam: absent: Gallop, JVD - GI/Abdominal Exam GI & Abdominal Exam: Soft, Normal Bowel Sounds - Extremities Exam Extremities Exam: absent: Calf Tenderness - Back Exam Back Exam: absent: CVA tenderness (L), CVA tenderness (R) - Neurological Exam Neurological Exam: Alert - Psychiatric Exam Psychiatric exam: Normal Affect - Skin Skin Exam: absent: Cyanosis Assessment and Plan (1) Anemia Status: Acute (2) DEVIN (acute kidney injury) Assessment & Plan: Acute kidney injury Etiology not clear patient appears to have a dropping in his hemoglobin and also according to the he lost a lot of blood in the other hospital during the amputation so I am not sure if he has hypotensive episode at that time and compromise his renal perfusion? Eosinophil in the urine negative No proteinuria Hyperphosphatemia Diabetes mellitus Hypertension Status post above-knee amputation for sarcoma Hepatomegaly and fatty liver and possible ascites on CAT scan and some pleural effusion? And some bilateral small renal calculi has been reported on the CAT scan as well see the detail My recommendation Status post 2 units of blood transfused overnight on Serum creatinine inching down very slowly To give Lasix 40 mg daily starting now for 3 days Daily weight and intake and output Discussed with the and the patient for possible kidney biopsy because he is obese and make the procedures difficult and therefore there are hesitating to do the biopsy Immune work-up C3-C4 normal Eosinophils in the urine negative DC IV fluid Suggest to call consultation urology for bilateral kidney stone and fullness as described the CAT scan And calcium acetate 1 tablet 3 times a day Status: Acute (3) Diabetes mellitus Status: Chronic (4) Hypertension Status: Chronic
[2018-09-03] MEDS: Calcium Acetate 667 MG Capsule PO SCH ×2 (14:00→18:10)
[2018-09-03 15:29] LABS: IRON 48 ug/dL (49-181)
[2018-09-03 15:38] LABS: % IRON SATURATION 18 % (20-55); TOTAL IRON BINDING CAPACITY 273 ug/dL (250-450)
--- NOTE | 2018-09-03 15:44 | CP.PCM.PN ---
Subjective - Date & Time of Evaluation Date of Evaluation: 09/03/18 Time of Evaluation: 15:15 - Subjective Subjective: Patient seen and examined. Denied any complaint. Objective - Vital Signs/Intake and Output Vital Signs (last 24 hours): Temp Pulse Resp BP Pulse Ox 98.1 F 87 22 177/82 H 98 09/03/18 08:19 09/03/18 13:28 09/03/18 08:19 09/03/18 13:28 09/03/18 08:19 Intake and Output: 09/03/18 09/03/18 06:59 18:59 Intake Total 300 Output Total 1900 Balance -1600 - Medications Medications: Current Medications Albuterol (Ventolin Hfa 90 Mcg/Actuation (8 G)) 1 puff IH QID PRN PRN Reason: Shortness of Breath Last Admin: 09/03/18 08:41 Dose: 1 puff Atorvastatin Calcium (Lipitor) 10 mg PO HS [facility] Last Admin: 09/02/18 21:23 Dose: 10 mg Bisacodyl (Dulcolax) 5 mg PO DAILY [facility] Last Admin: 09/03/18 08:39 Dose: 5 mg Calcium Acetate (Phoslo) 667 mg PO TID [facility] Last Admin: 09/03/18 14:00 Dose: 667 mg Clonidine HCl (Catapres) 0.1 mg PO 1400 [facility] Last Admin: 09/03/18 13:28 Dose: 0.1 mg Docusate Sodium (Colace) 300 mg PO DAILY [facility] Last Admin: 09/03/18 08:40 Dose: 300 mg Enoxaparin Sodium (Lovenox) 40 mg SC DAILY [facility]; Protocol Last Admin: 09/03/18 08:41 Dose: 40 mg Ferrous Sulfate (Feosol) 325 mg PO BID [facility] Last Admin: 09/03/18 08:41 Dose: 325 mg Gabapentin (Neurontin) 300 mg PO BID [facility] Last Admin: 09/03/18 08:41 Dose: 300 mg Insulin Detemir (Levemir) 25 units SC [facility] Last Admin: 09/02/18 21:23 Dose: 25 units Insulin Human Lispro (Humalog) 0 units SC [facility]; Protocol Last Admin: 09/03/18 12:28 Dose: 1 unit Lorazepam (Ativan) 0.5 mg PO Q8H PRN PRN Reason: Anxiety Oxycodone HCl (Oxycodone Immediate Release Tab) 5 mg PO Q4 PRN PRN Reason: Pain, moderate (4-7) Last Admin: 08/28/18 09:09 Dose: 5 mg Oxycodone HCl (Oxycodone Immediate Release Tab) 10 mg PO Q4 PRN PRN Reason: Pain, severe (8-10) Last Admin: 09/03/18 10:13 Dose: 10 mg Sennosides (Senokot Tab) 17.2 mg PO HS [facility] Last Admin: 09/02/18 21:23 Dose: 17.2 mg Silver Sulfadiazine (Silvadene 1% 20 Gm) 1 ea TOP 0600,1800 [facility] Last Admin: 09/03/18 06:33 Dose: 1 each - Labs Labs: 09/02/18 05:23 09/02/18 10:15 PT 12.3 Seconds (9.8-13.1) 08/26/18 06:00 INR 1.1 08/26/18 06:00 APTT 34.2 Seconds (25.6-37.1) 08/26/18 06:00 - Constitutional Appears: No Acute Distress - Head Exam Head Exam: ATRAUMATIC - Eye Exam Eye Exam: absent: Scleral icterus - ENT Exam ENT Exam: Mucous Membranes Moist - Neck Exam Neck Exam: absent: Meningismus - Respiratory Exam Respiratory Exam: absent: Rales, Rhonchi, Wheezes, Respiratory Distress - Cardiovascular Exam Cardiovascular Exam: REGULAR RHYTHM, +S1, +S2 - GI/Abdominal Exam GI & Abdominal Exam: Soft. absent: Tenderness - Rectal Exam Rectal Exam: Deferred - Extremities Exam Extremities Exam: absent: Normal Inspection (right stump dressing clean and dry) - Neurological Exam Neurological Exam: Alert, Oriented x3 - Psychiatric Exam Psychiatric exam: Normal Affect - Skin Skin Exam: Dry, Intact Assessment and Plan - Assessment and Plan (Free Text) Assessment: 58 yo male with history of Sarcoma of the right leg brought in from [facility] after undergoing right AKA on 08/18/2018. 1. Sarcoma post right AKA continue PT/OT pain manageable Dr Anderson on physiatry consult 2. Anemia anemia secondary to renal failure and blood loss Hgb: 9.4 continue FeSO4 3. DEVIN unclear etiology, probably secondary to blood volume loss from surgery BUN/Crea : 36/3.6Dr Brown on renal consult continue IV hydration Renal US: bilateral renal collecting system fullness and renal parenchymal calculi urology consult with Dr Almeida 4. DM2 BS controlled FBS, HgA1C in am Levemir 50 units SC HS Glipizide 10mg PO BID Metformin 1000mg PO BID 5. HTN BP stable continue Clonidine 6. DVT prophylaxis continue Lovenox
[2018-09-03] MEDS: Insulin Detemir 100 Units/ml Inj SC SCH (22:17)
[2018-09-04] MEDS: Silver Sulfadiazine 1% Cream (20 gm) TOP SCH ×2 (05:34→18:10)
[2018-09-04] MEDS: Insulin Lispro (humaLOG) 100 Units/ml Inj SC SCH ×4 (07:28→21:32)
[2018-09-04] MEDS: Enoxaparin 40 mg Syringe SC SCH (09:05)
[2018-09-04] MEDS: Albuterol HFA 90 mcg/actuation (8 g) IH PRN (09:05)
[2018-09-04] MEDS: Bisacodyl 5mg EC Tab PO SCH (09:07)
--- NOTE | 2018-09-04 09:30 | CP.PCM.PN ---
Subjective - Date & Time of Evaluation Date of Evaluation: 09/04/18 Time of Evaluation: 09:32 - Subjective Subjective: Awake conscious not in acute distress feeling much better No complaint reported Vital signs stable Objective - Vital Signs/Intake and Output Vital Signs (last 24 hours): Temp Pulse Resp BP Pulse Ox 97.7 F 74 22 136/70 97 09/04/18 08:49 09/04/18 08:49 09/04/18 08:49 09/04/18 08:49 09/04/18 08:49 Intake and Output: 09/04/18 09/04/18 06:59 18:59 Intake Total 720 Output Total 1800 Balance -1080 - Medications Medications: Current Medications Albuterol (Ventolin Hfa 90 Mcg/Actuation (8 G)) 1 puff IH QID PRN PRN Reason: Shortness of Breath Last Admin: 09/04/18 09:05 Dose: 1 puff Atorvastatin Calcium (Lipitor) 10 mg PO HS [facility] Last Admin: 09/03/18 21:04 Dose: 10 mg Bisacodyl (Dulcolax) 5 mg PO DAILY [facility] Last Admin: 09/04/18 09:07 Dose: 5 mg Calcium Acetate (Phoslo) 667 mg PO TID [facility] Last Admin: 09/04/18 09:21 Dose: 667 mg Clonidine HCl (Catapres) 0.1 mg PO 1400 [facility] Last Admin: 09/03/18 13:28 Dose: 0.1 mg Docusate Sodium (Colace) 300 mg PO DAILY [facility] Last Admin: 09/04/18 09:05 Dose: 300 mg Enoxaparin Sodium (Lovenox) 40 mg SC DAILY [facility]; Protocol Last Admin: 09/04/18 09:05 Dose: 40 mg Ferrous Sulfate (Feosol) 325 mg PO BID [facility] Last Admin: 09/04/18 09:06 Dose: 325 mg Gabapentin (Neurontin) 300 mg PO BID [facility] Last Admin: 09/04/18 09:06 Dose: 300 mg Insulin Detemir (Levemir) 25 units SC [facility] Last Admin: 09/03/18 22:17 Dose: 25 units Insulin Human Lispro (Humalog) 0 units SC [facility]; Protocol Last Admin: 09/04/18 07:28 Dose: 1 unit Lorazepam (Ativan) 0.5 mg PO Q8H PRN PRN Reason: Anxiety Oxycodone HCl (Oxycodone Immediate Release Tab) 5 mg PO Q4 PRN PRN Reason: Pain, moderate (4-7) Last Admin: 08/28/18 09:09 Dose: 5 mg Oxycodone HCl (Oxycodone Immediate Release Tab) 10 mg PO Q4 PRN PRN Reason: Pain, severe (8-10) Last Admin: 09/03/18 10:13 Dose: 10 mg Sennosides (Senokot Tab) 17.2 mg PO HS [facility] Last Admin: 09/03/18 21:04 Dose: 17.2 mg Silver Sulfadiazine (Silvadene 1% 20 Gm) 1 ea TOP 0600,1800 [facility] Last Admin: 09/04/18 05:34 Dose: 1 each - Labs Labs: 09/02/18 05:23 09/02/18 10:15 PT 12.3 Seconds (9.8-13.1) 08/26/18 06:00 INR 1.1 08/26/18 06:00 APTT 34.2 Seconds (25.6-37.1) 08/26/18 06:00 - Constitutional Appears: No Acute Distress - Eye Exam Eye Exam: Conjunctival injection - Neck Exam Neck Exam: absent: Lymphadenopathy - Respiratory Exam Respiratory Exam: NORMAL BREATHING PATTERN. absent: Chest Wall Tenderness, Wheezes - Cardiovascular Exam Cardiovascular Exam: absent: Gallop, JVD, Rubs - GI/Abdominal Exam GI & Abdominal Exam: Normal Bowel Sounds - Extremities Exam Extremities Exam: absent: Calf Tenderness - Back Exam Back Exam: absent: CVA tenderness (L), CVA tenderness (R) - Neurological Exam Neurological Exam: Alert - Psychiatric Exam Psychiatric exam: Normal Affect - Skin Skin Exam: absent: Cyanosis Assessment and Plan (1) Anemia Status: Acute (2) DEVIN (acute kidney injury) Assessment & Plan: Acute kidney injury Etiology not clear patient appears to have a dropping in his hemoglobin and also according to the he lost a lot of blood in the other hospital during the amputation so I am not sure if he has hypotensive episode at that time and compromise his renal perfusion? Eosinophil in the urine negative No proteinuria Hyperphosphatemia Diabetes mellitus Hypertension Status post above-knee amputation for sarcoma Hepatomegaly and fatty liver and possible ascites on CAT scan and some pleural effusion? And some bilateral small renal calculi has been reported on the CAT scan as well see the detail My recommendation Status post 2 units of blood transfused overnight on Serum creatinine inching down very slowly Daily weight and intake and output Immune work-up C3-C4 normal Eosinophils in the urine negative DC IV fluid Suggest to call consultation urology for bilateral kidney stone and fullness as described the CAT scan And calcium acetate 1 tablet 3 times a day Immune fixation not detected Last creatinine on September 02 years to repeat BMP stat this morning still pending Again if the creatinine not improving patient will need kidney biopsy waiting also for evaluation and suggest to do renal scan Status: Acute (3) Diabetes mellitus Status: Chronic (4) Hypertension Status: Chronic
[2018-09-04 09:38] LABS: CALCIUM 8.5 mg/dL (8.4-10.2)
[2018-09-04] MEDS: Calcium Acetate 667 MG Capsule PO SCH (10:59)
--- NOTE | 2018-09-04 17:45 | CP.PCM.PN ---
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 Has had radiation treatment. Known mets to other areas, some improved and some did not with chemo treatment. This is being planned by DR Lau Objective - Vital Signs/Intake and Output Vital Signs (last 24 hours): Temp Pulse Resp BP Pulse Ox 97.7 F 87 22 129/83 97 09/04/18 08:49 09/04/18 13:50 09/04/18 08:49 09/04/18 13:50 09/04/18 08:49 Intake and Output: 09/04/18 09/04/18 06:59 18:59 Intake Total 720 Output Total 1800 Balance -1080 - Medications Medications: Current Medications Albuterol (Ventolin Hfa 90 Mcg/Actuation (8 G)) 1 puff IH QID PRN PRN Reason: Shortness of Breath Last Admin: 09/04/18 09:05 Dose: 1 puff Atorvastatin Calcium (Lipitor) 10 mg PO HS [facility] Last Admin: 09/03/18 21:04 Dose: 10 mg Bisacodyl (Dulcolax) 5 mg PO DAILY [facility] Last Admin: 09/04/18 09:07 Dose: 5 mg Calcium Acetate (Phoslo) 667 mg PO TID [facility] Last Admin: 09/04/18 16:31 Dose: 667 mg Clonidine HCl (Catapres) 0.1 mg PO 1400 [facility] Last Admin: 09/04/18 13:50 Dose: 0.1 mg Docusate Sodium (Colace) 300 mg PO DAILY [facility] Last Admin: 09/04/18 09:05 Dose: 300 mg Enoxaparin Sodium (Lovenox) 40 mg SC DAILY [facility]; Protocol Last Admin: 09/04/18 09:05 Dose: 40 mg Ferrous Sulfate (Feosol) 325 mg PO BID [facility] Last Admin: 09/04/18 16:31 Dose: 325 mg Gabapentin (Neurontin) 300 mg PO BID [facility] Last Admin: 09/04/18 16:31 Dose: 300 mg Insulin Detemir (Levemir) 25 units SC [facility] Last Admin: 09/03/18 22:17 Dose: 25 units Insulin Human Lispro (Humalog) 0 units SC [facility]; Protocol Last Admin: 09/04/18 16:31 Dose: 1 unit Lorazepam (Ativan) 0.5 mg PO Q8H PRN PRN Reason: Anxiety Oxycodone HCl (Oxycodone Immediate Release Tab) 5 mg PO Q4 PRN PRN Reason: Pain, moderate (4-7) Last Admin: 08/28/18 09:09 Dose: 5 mg Oxycodone HCl (Oxycodone Immediate Release Tab) 10 mg PO Q4 PRN PRN Reason: Pain, severe (8-10) Last Admin: 09/03/18 10:13 Dose: 10 mg Sennosides (Senokot Tab) 17.2 mg PO HS [facility] Last Admin: 09/03/18 21:04 Dose: 17.2 mg Silver Sulfadiazine (Silvadene 1% 20 Gm) 1 ea TOP 0600,1800 [facility] Last Admin: 09/04/18 05:34 Dose: 1 each - Labs Labs: 09/02/18 05:23 09/04/18 08:35 PT 12.3 Seconds (9.8-13.1) 08/26/18 06:00 INR 1.1 08/26/18 06:00 APTT 34.2 Seconds (25.6-37.1) 08/26/18 06:00 - Constitutional Appears: Non-toxic, No Acute Distress - Head Exam Head Exam: ATRAUMATIC, NORMAL INSPECTION - Eye Exam Eye Exam: EOMI - ENT Exam ENT Exam: Mucous Membranes Moist - Respiratory Exam Respiratory Exam: Decreased Breath Sounds, NORMAL BREATHING PATTERN. absent: Rales - Cardiovascular Exam Cardiovascular Exam: REGULAR RHYTHM - GI/Abdominal Exam GI & Abdominal Exam: Distended. 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 Has had radiation parish tment. Known mets to other areas, some improved and some did not with chemo treatment. PT/OT to continue to help increase functional independence Team conference for d/c planning Pain: controlled Vascular: no evidence of DVT GI: No evidence of constipation or diarrhea Patient continues to be an excellent acute rehabilitation candidate and will have continued pain management, wound care, PT, OT and recreational therapy to help facilitate a safe and appropriate d/c plan
[2018-09-04] MEDS: Insulin Detemir 100 Units/ml Inj SC SCH (21:29)
[2018-09-05] MEDS: Insulin Lispro (humaLOG) 100 Units/ml Inj SC SCH ×4 (07:10→21:06)
[2018-09-05] MEDS: Silver Sulfadiazine 1% Cream (20 gm) TOP SCH ×2 (07:10→17:35)
[2018-09-05] MEDS: Bisacodyl 5mg EC Tab PO SCH (08:40)
[2018-09-05] MEDS: Enoxaparin 40 mg Syringe SC SCH (08:42)
[2018-09-05 08:56] LABS: HEMOGLOBIN 11.1 g/dL (12.0-18.0); MEAN CELL VOLUME 90.7 fl (80.0-94.0); MEAN CORPUSCULAR HEMOGLOBIN 29.4 pg (27.0-31.0); MEAN CORPUSCULAR HGB CONC 32.4 g/dL (33.0-37.0); RBC 3.78 Mil/uL (4.40-5.90); RED CELL DISTRIBUTION WIDTH 17.6 % (11.5-14.5); WHITE BLOOD COUNT 5.1 K/uL (4.8-10.8)
--- NOTE | 2018-09-05 11:45 | CP.PCM.PN ---
Subjective - Date & Time of Evaluation Date of Evaluation: 09/05/18 Time of Evaluation: 11:00 - Subjective Subjective: Patient seen and examined. Admitted feeling better. Denied any complaint. Objective - Vital Signs/Intake and Output Vital Signs (last 24 hours): Temp Pulse Resp BP Pulse Ox 96.1 F L 69 18 123/74 98 09/05/18 07:32 09/05/18 07:32 09/05/18 07:32 09/05/18 07:32 09/05/18 07:32 Intake and Output: 09/05/18 09/05/18 06:59 18:59 Intake Total 240 Output Total 2100 Balance -1860 - Medications Medications: Current Medications Albuterol (Ventolin Hfa 90 Mcg/Actuation (8 G)) 1 puff IH QID PRN PRN Reason: Shortness of Breath Last Admin: 09/04/18 09:05 Dose: 1 puff Atorvastatin Calcium (Lipitor) 10 mg PO HS [facility] Last Admin: 09/04/18 21:29 Dose: 10 mg Bisacodyl (Dulcolax) 5 mg PO DAILY [facility] Last Admin: 09/05/18 08:40 Dose: 5 mg Calcium Acetate (Phoslo) 667 mg PO TID [facility] Last Admin: 09/05/18 08:41 Dose: 667 mg Clonidine HCl (Catapres) 0.1 mg PO 1400 [facility] Last Admin: 09/04/18 13:50 Dose: 0.1 mg Docusate Sodium (Colace) 300 mg PO DAILY [facility] Last Admin: 09/05/18 08:41 Dose: 300 mg Enoxaparin Sodium (Lovenox) 40 mg SC DAILY [facility]; Protocol Last Admin: 09/05/18 08:42 Dose: 40 mg Ferrous Sulfate (Feosol) 325 mg PO BID [facility] Last Admin: 09/05/18 08:40 Dose: 325 mg Gabapentin (Neurontin) 300 mg PO BID [facility] Last Admin: 09/05/18 08:41 Dose: 300 mg Insulin Detemir (Levemir) 30 units SC [facility] Insulin Human Lispro (Humalog) 0 units SC [facility]; Protocol Last Admin: 09/05/18 07:10 Dose: 2 unit Lorazepam (Ativan) 0.5 mg PO Q8H PRN PRN Reason: Anxiety Oxycodone HCl (Oxycodone Immediate Release Tab) 5 mg PO Q4 PRN PRN Reason: Pain, moderate (4-7) Last Admin: 08/28/18 09:09 Dose: 5 mg Oxycodone HCl (Oxycodone Immediate Release Tab) 10 mg PO Q4 PRN PRN Reason: Pain, severe (8-10) Last Admin: 09/03/18 10:13 Dose: 10 mg Sennosides (Senokot Tab) 17.2 mg PO HS [facility] Last Admin: 09/04/18 21:29 Dose: 17.2 mg Silver Sulfadiazine (Silvadene 1% 20 Gm) 1 ea TOP 0600,1800 [facility] Last Admin: 09/05/18 07:10 Dose: 1 each - Labs Labs: 09/05/18 08:45 09/04/18 08:35 PT 12.3 Seconds (9.8-13.1) 08/26/18 06:00 INR 1.1 08/26/18 06:00 APTT 34.2 Seconds (25.6-37.1) 08/26/18 06:00 - Constitutional Appears: No Acute Distress - Head Exam Head Exam: ATRAUMATIC - Eye Exam Eye Exam: absent: Scleral icterus - ENT Exam ENT Exam: Mucous Membranes Moist - Neck Exam Neck Exam: absent: Meningismus - Respiratory Exam Respiratory Exam: absent: Rales, Rhonchi, Wheezes, Respiratory Distress - Cardiovascular Exam Cardiovascular Exam: REGULAR RHYTHM, +S1, +S2 - GI/Abdominal Exam GI & Abdominal Exam: Soft. absent: Tenderness - Rectal Exam Rectal Exam: Deferred - Extremities Exam Extremities Exam: absent: Normal Inspection (right leg stump wrapped with dressing and bandage) - Neurological Exam Neurological Exam: Alert, Oriented x3 - Psychiatric Exam Psychiatric exam: Normal Affect - Skin Skin Exam: Dry, Intact Assessment and Plan - Assessment and Plan (Free Text) Assessment: 58 yo male with history of Sarcoma of the right leg brought in from [facility] after undergoing right AKA on 08/18/2018. 1. Sarcoma post right AKA continue PT/OT pain manageable Dr Anderson on physiatry consult 2. Anemia anemia secondary to renal failure and blood loss Hgb: 11.1 continue FeSO4 3. DEVIN unclear etiology, probably secondary to hypovolemia from surgery BUN/Crea : 27/2, improving Dr Brown on renal consult continue IV hydration Renal US: bilateral renal collecting system fullness and renal parenchymal calculi 4. DM2 BS controlled HgA1C: 7.7 Levemir 30 units SC HS 5. HTN BP stable continue Clonidine 6. DVT prophylaxis continue Lovenox 30mg SC daily
--- NOTE | 2018-09-05 12:48 | CP.PCM.PN ---
Subjective - Date & Time of Evaluation Date of Evaluation: 09/05/18 Time of Evaluation: 12:41 - Subjective Subjective: 58 year old male admitted to rehab,after AKA for sarcoma. Pt has no urinarysymtoms now CT shows mult.renal calculi and 4-5 mm stone at upj with minimal hydro pt is pain free.A Renal calculi(BILAT) R upj calculi w/o sig hydro Suggest Start pt on flomax strain all urine for stone.if clinical situation changes may need stenting. follow up is recomended for elective lithotripsy when med condition permits. [place] Objective - Vital Signs/Intake and Output Vital Signs (last 24 hours): Temp Pulse Resp BP Pulse Ox 96.1 F L 69 18 123/74 98 09/05/18 07:32 09/05/18 07:32 09/05/18 07:32 09/05/18 07:32 09/05/18 07:32 Intake and Output: 09/05/18 09/05/18 06:59 18:59 Intake Total 240 Output Total 2100 Balance -1860 - Medications Medications: Current Medications Albuterol (Ventolin Hfa 90 Mcg/Actuation (8 G)) 1 puff IH QID PRN PRN Reason: Shortness of Breath Last Admin: 09/04/18 09:05 Dose: 1 puff Atorvastatin Calcium (Lipitor) 10 mg PO HS [facility] Last Admin: 09/04/18 21:29 Dose: 10 mg Bisacodyl (Dulcolax) 5 mg PO DAILY [facility] Last Admin: 09/05/18 08:40 Dose: 5 mg Calcium Acetate (Phoslo) 667 mg PO TID [facility] Last Admin: 09/05/18 08:41 Dose: 667 mg Clonidine HCl (Catapres) 0.1 mg PO 1400 [facility] Last Admin: 09/04/18 13:50 Dose: 0.1 mg Docusate Sodium (Colace) 300 mg PO DAILY [facility] Last Admin: 09/05/18 08:41 Dose: 300 mg Enoxaparin Sodium (Lovenox) 40 mg SC DAILY [facility]; Protocol Ferrous Sulfate (Feosol) 325 mg PO BID [facility] Last Admin: 09/05/18 08:40 Dose: 325 mg Gabapentin (Neurontin) 300 mg PO BID [facility] Last Admin: 09/05/18 08:41 Dose: 300 mg Insulin Detemir (Levemir) 30 units SC [facility] Insulin Human Lispro (Humalog) 0 units SC [facility]; Protocol Last Admin: 09/05/18 11:51 Dose: 1 unit Lorazepam (Ativan) 0.5 mg PO Q8H PRN PRN Reason: Anxiety Oxycodone HCl (Oxycodone Immediate Release Tab) 5 mg PO Q4 PRN PRN Reason: Pain, moderate (4-7) Last Admin: 08/28/18 09:09 Dose: 5 mg Oxycodone HCl (Oxycodone Immediate Release Tab) 10 mg PO Q4 PRN PRN Reason: Pain, severe (8-10) Last Admin: 09/03/18 10:13 Dose: 10 mg Sennosides (Senokot Tab) 17.2 mg PO [facility] Last Admin: 09/04/18 21:29 Dose: 17.2 mg Silver Sulfadiazine (Silvadene 1% 20 Gm) 1 ea TOP 0600,1800 [facility] Last Admin: 09/05/18 07:10 Dose: 1 each - Labs Labs: 09/05/18 08:45 09/04/18 08:35 PT 12.3 Seconds (9.8-13.1) 08/26/18 06:00 INR 1.1 08/26/18 06:00 APTT 34.2 Seconds (25.6-37.1) 08/26/18 06:00
[2018-09-05 13:04] LABS: CALCIUM 9.1 mg/dL (8.4-10.2)
--- NOTE | 2018-09-05 16:12 | CP.PCM.PN ---
Subjective - Date & Time of Evaluation Date of Evaluation: 09/05/18 Time of Evaluation: 16:11 - Subjective Subjective: right AKA secondary to sarcoma Objective - Vital Signs/Intake and Output Vital Signs (last 24 hours): Temp Pulse Resp BP Pulse Ox 96.1 F L 75 18 108/57 L 98 09/05/18 07:32 09/05/18 13:28 09/05/18 07:32 09/05/18 13:28 09/05/18 07:32 Intake and Output: 09/05/18 09/05/18 06:59 18:59 Intake Total 240 Output Total 2100 Balance -1860 - Medications Medications: Current Medications Albuterol (Ventolin Hfa 90 Mcg/Actuation (8 G)) 1 puff IH QID PRN PRN Reason: Shortness of Breath Last Admin: 09/04/18 09:05 Dose: 1 puff Atorvastatin Calcium (Lipitor) 10 mg PO HS [facility] Last Admin: 09/04/18 21:29 Dose: 10 mg Bisacodyl (Dulcolax) 5 mg PO DAILY [facility] Last Admin: 09/05/18 08:40 Dose: 5 mg Calcium Acetate (Phoslo) 667 mg PO TID [facility] Last Admin: 09/05/18 13:27 Dose: 667 mg Clonidine HCl (Catapres) 0.1 mg PO 1400 [facility] Last Admin: 09/05/18 13:28 Dose: Not Given Docusate Sodium (Colace) 300 mg PO DAILY [facility] Last Admin: 09/05/18 08:41 Dose: 300 mg Enoxaparin Sodium (Lovenox) 40 mg SC DAILY [facility]; Protocol Ferrous Sulfate (Feosol) 325 mg PO BID [facility] Last Admin: 09/05/18 08:40 Dose: 325 mg Gabapentin (Neurontin) 300 mg PO BID [facility] Last Admin: 09/05/18 08:41 Dose: 300 mg Insulin Detemir (Levemir) 30 units SC [facility] Insulin Human Lispro (Humalog) 0 units SC [facility]; Protocol Last Admin: 09/05/18 11:51 Dose: 1 unit Lorazepam (Ativan) 0.5 mg PO Q8H PRN PRN Reason: Anxiety Oxycodone HCl (Oxycodone Immediate Release Tab) 5 mg PO Q4 PRN PRN Reason: Pain, moderate (4-7) Last Admin: 08/28/18 09:09 Dose: 5 mg Oxycodone HCl (Oxycodone Immediate Release Tab) 10 mg PO Q4 PRN PRN Reason: Pain, severe (8-10) Last Admin: 09/03/18 10:13 Dose: 10 mg Sennosides (Senokot Tab) 17.2 mg PO HS [facility] Last Admin: 09/04/18 21:29 Dose: 17.2 mg Silver Sulfadiazine (Silvadene 1% 20 Gm) 1 ea TOP 0600,1800 [facility] Last Admin: 09/05/18 07:10 Dose: 1 each Tamsulosin HCl (Flomax) 0.4 mg PO DAILY [facility] - Labs Labs: 09/05/18 08:45 09/05/18 08:45 PT 12.3 Seconds (9.8-13.1) 08/26/18 06:00 INR 1.1 08/26/18 06:00 APTT 34.2 Seconds (25.6-37.1) 08/26/18 06:00 - Constitutional Appears: Non-toxic, No Acute Distress - Head Exam Head Exam: ATRAUMATIC, NORMAL INSPECTION, NORMOCEPHALIC - Eye Exam Eye Exam: EOMI - ENT Exam ENT Exam: Mucous Membranes Moist - Respiratory Exam Respiratory Exam: NORMAL BREATHING PATTERN. absent: Accessory Muscle Use - Cardiovascular Exam Cardiovascular Exam: REGULAR RHYTHM - GI/Abdominal Exam GI & Abdominal Exam: Distended. absent: Guarding - Neurological Exam Neurological Exam: Alert, CN II-XII Intact Neuro motor strength exam: Left Upper Extremity: 5, Right Upper Extremity: 5, Left Lower Extremity: 5 - Psychiatric Exam Psychiatric exam: Normal Affect, Normal Mood - Skin Skin Exam: Warm Assessment and Plan - Assessment and Plan (Free Text) Assessment: PT/OT to continue to help increase functional independence Team conference for d/c planning Pain: controlled Vascular: no evidence of DVT GI: No evidence of constipation or diarrhea Patient continues to be an excellent acute rehabilitation candidate and will have continued pain management, wound care PT, OT and recreational therapy to help facilitate a safe and appropriate d/c plan
--- NOTE | 2018-09-05 17:25 | CP.PCM.PN ---
Subjective - Date & Time of Evaluation Date of Evaluation: 09/05/18 Time of Evaluation: 17:25 - Subjective Subjective: Patient awake and conscious feeling good vital signs stable No nausea no vomiting. Appetite is good. Objective - Vital Signs/Intake and Output Vital Signs (last 24 hours): Temp Pulse Resp BP Pulse Ox 96.1 F L 75 18 108/57 L 98 09/05/18 07:32 09/05/18 13:28 09/05/18 07:32 09/05/18 13:28 09/05/18 07:32 Intake and Output: 09/05/18 09/05/18 06:59 18:59 Intake Total 240 Output Total 2100 Balance -1860 - Medications Medications: Current Medications Albuterol (Ventolin Hfa 90 Mcg/Actuation (8 G)) 1 puff IH QID PRN PRN Reason: Shortness of Breath Last Admin: 09/04/18 09:05 Dose: 1 puff Atorvastatin Calcium (Lipitor) 10 mg PO HS [facility] Last Admin: 09/04/18 21:29 Dose: 10 mg Bisacodyl (Dulcolax) 5 mg PO DAILY [facility] Last Admin: 09/05/18 08:40 Dose: 5 mg Calcium Acetate (Phoslo) 667 mg PO TID [facility] Last Admin: 09/05/18 13:27 Dose: 667 mg Clonidine HCl (Catapres) 0.1 mg PO 1400 [facility] Last Admin: 09/05/18 13:28 Dose: Not Given Docusate Sodium (Colace) 300 mg PO DAILY [facility] Last Admin: 09/05/18 08:41 Dose: 300 mg Enoxaparin Sodium (Lovenox) 40 mg SC DAILY [facility]; Protocol Ferrous Sulfate (Feosol) 325 mg PO BID [facility] Last Admin: 09/05/18 08:40 Dose: 325 mg Gabapentin (Neurontin) 300 mg PO BID [facility] Last Admin: 09/05/18 08:41 Dose: 300 mg Insulin Detemir (Levemir) 30 units SC [facility] Insulin Human Lispro (Humalog) 0 units SC [facility]; Protocol Last Admin: 09/05/18 11:51 Dose: 1 unit Lorazepam (Ativan) 0.5 mg PO Q8H PRN PRN Reason: Anxiety Oxycodone HCl (Oxycodone Immediate Release Tab) 5 mg PO Q4 PRN PRN Reason: Pain, moderate (4-7) Last Admin: 08/28/18 09:09 Dose: 5 mg Oxycodone HCl (Oxycodone Immediate Release Tab) 10 mg PO Q4 PRN PRN Reason: Pain, severe (8-10) Last Admin: 09/03/18 10:13 Dose: 10 mg Sennosides (Senokot Tab) 17.2 mg PO HS [facility] Last Admin: 09/04/18 21:29 Dose: 17.2 mg Silver Sulfadiazine (Silvadene 1% 20 Gm) 1 ea TOP 0600,1800 [facility] Last Admin: 09/05/18 07:10 Dose: 1 each Tamsulosin HCl (Flomax) 0.4 mg PO DAILY [facility] - Labs Labs: 09/05/18 08:45 09/05/18 08:45 PT 12.3 Seconds (9.8-13.1) 08/26/18 06:00 INR 1.1 08/26/18 06:00 APTT 34.2 Seconds (25.6-37.1) 08/26/18 06:00 - Constitutional Appears: No Acute Distress - Eye Exam Eye Exam: Conjunctival injection - ENT Exam ENT Exam: Mucous Membranes Moist - Respiratory Exam Respiratory Exam: Clear to Ausculation Bilateral, NORMAL BREATHING PATTERN. absent: Chest Wall Tenderness - Cardiovascular Exam Cardiovascular Exam: absent: Gallop, JVD, Rubs - GI/Abdominal Exam GI & Abdominal Exam: Soft, Normal Bowel Sounds - Extremities Exam Extremities Exam: absent: Calf Tenderness - Back Exam Back Exam: absent: CVA tenderness (L), CVA tenderness (R) - Neurological Exam Neurological Exam: Alert - Psychiatric Exam Psychiatric exam: Normal Affect - Skin Skin Exam: absent: Cyanosis Assessment and Plan (1) Anemia Status: Acute (2) DEVIN (acute kidney injury) Assessment & Plan: Acute kidney injury Etiology not clear patient appears to have a dropping in his hemoglobin and also according to the he lost a lot of blood in the other hospital during the amputation so I am not sure if he has hypotensive episode at that time and compromise his renal perfusion? No proteinuria Hyperphosphatemia Diabetes mellitus Hypertension Status post above-knee amputation for sarcoma Hepatomegaly and fatty liver and possible ascites on CAT scan and some pleural effusion? And bilateral small renal calculi has been reported on the CAT scan as well see the detail My recommendation Status post 2 units of blood transfused overnight on Serum creatinine improving 2.0 on 09/04 to repeat. Daily weight and intake and output Immune work-up C3-C4 normal Eosinophils in the urine negative DC IV fluid And calcium acetate 1 tablet 3 times a day Immune fixation not detected Appear to be recovering from acute kidney injury serum creatinine dropping down and repeat tomorrow. Patient was seen by urologist and Flomax was added Status: Acute (3) Diabetes mellitus Status: Chronic (4) Hypertension Status: Chronic
[2018-09-05] MEDS: Insulin Detemir 100 Units/ml Inj SC SCH (21:21)
--- NOTE | 2018-09-06 02:10 | CON ---
DATE: 09/05/2018 REASON FOR CONSULTATION: Kidney stones. HISTORY OF PRESENT ILLNESS: The patient recently had some abdominal pain and had a CAT scan, which showed multiple renal calculi and the calculi in the right UVJ of less than 5 mm. The patient is now pain free. 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 The patient is rehabbing after that surgery. He is having no pain now. He has no history of prior kidney stones or knowledge of prior kidney stones. He is working to become ambulatory after the amputation. He says he is urinating well without difficulty. He has had no hematuria or fever. Further history is noncontributory. REVIEW OF SYSTEMS: RESPIRATORY SYSTEM: The patient is not complaining of any difficulty in breathing or shortness of breath. CARDIAC: The patient has no chest pain or palpitations. GASTROINTESTINAL: The patient is not experiencing diarrhea or change in bowel habits. GENITOURINARY: The patient is having no difficulty in urinating. No hematuria, dysuria, or renal colic. ORTHOPEDIC: The patient has a recent left AKA. SOCIAL HISTORY: The patient is a nonsmoker. FAMILY HISTORY: The patient is and works at [employer]. PHYSICAL EXAMINATION: VITAL SIGNS: Within normal limits. HEAD, EARS, EYES, NOSE, AND THROAT: Within normal limits. NECK: Supple. There are no bruits, nodes or masses. CHEST: Clear bilaterally. There is no rales or rhonchi. HEART: Normal sinus rhythm. There is no murmur. LUNGS: Clear bilaterally. There is slight basilar rales. BREASTS: Normal. ABDOMEN: Soft. Nontender. There is no CVA tenderness. GENITALIA: Normal. RECTAL: Declined by the patient. EXTREMITIES: The patient has a bandage on his left leg at the point of a left AKA amputation. Further examination was not done. LABORATORY DATA: I have also reviewed the patient's laboratory data, which shows a creatinine of 2. No significant elevation in the white count. I also reviewed his CAT scan of the abdomen and pelvis showing the bilateral renal calculi and a single slightly less than 5 mm calculi in the right UVJ without hydronephrosis. IMPRESSION: My impression is multiple renal calculi and right ureteropelvic junction calculi without hydronephrosis or colic. Suggest the following: Since the patient is recently postoperative and further chemotherapy maybe planned, we suggest the patient be placed on Flomax 0.4 mg and all urine be strained for stone. If the patient experiences new colic, he may need to have a stent placed. However, this stone is likely to pass on its own. The creatinine should be monitored and especially if further chemotherapy is anticipated. Please call me if the patient has any further difficulties or if you wish me to re-evaluate the patient. Daquan Almeida MD
[2018-09-06] MEDS: Silver Sulfadiazine 1% Cream (20 gm) TOP SCH ×2 (05:52→17:23)
[2018-09-06] MEDS: Insulin Lispro (humaLOG) 100 Units/ml Inj SC SCH ×4 (07:26→21:47)
[2018-09-06] MEDS: Enoxaparin 40 mg Syringe SC SCH (08:31)
[2018-09-06] MEDS: Bisacodyl 5mg EC Tab PO SCH (08:32)
--- NOTE | 2018-09-06 11:23 | CP.PCM.PN ---
Subjective - Date & Time of Evaluation Date of Evaluation: 09/06/18 Time of Evaluation: 09:30 - Subjective Subjective: patient resting in room, no acute complaints of any stump pain Objective - Vital Signs/Intake and Output Vital Signs (last 24 hours): Temp Pulse Resp BP Pulse Ox 97.9 F 78 20 138/79 97 09/06/18 08:08 09/06/18 08:08 09/06/18 08:08 09/06/18 08:08 09/06/18 08:08 Intake and Output: 09/06/18 09/06/18 06:59 18:59 Intake Total 1200 Output Total 1800 Balance -600 - Medications Medications: Current Medications Albuterol (Ventolin Hfa 90 Mcg/Actuation (8 G)) 1 puff IH QID PRN PRN Reason: Shortness of Breath Last Admin: 09/04/18 09:05 Dose: 1 puff Atorvastatin Calcium (Lipitor) 10 mg PO HS [facility] Last Admin: 09/05/18 21:18 Dose: 10 mg Bisacodyl (Dulcolax) 5 mg PO DAILY [facility] Last Admin: 09/06/18 08:32 Dose: 5 mg Calcium Acetate (Phoslo) 667 mg PO TID [facility] Last Admin: 09/06/18 08:34 Dose: 667 mg Clonidine HCl (Catapres) 0.1 mg PO 1400 [facility] Last Admin: 09/05/18 13:28 Dose: Not Given Docusate Sodium (Colace) 300 mg PO DAILY [facility] Last Admin: 09/06/18 08:32 Dose: 300 mg Enoxaparin Sodium (Lovenox) 40 mg SC DAILY [facility]; Protocol Last Admin: 09/06/18 08:31 Dose: 40 mg Ferrous Sulfate (Feosol) 325 mg PO BID [facility] Last Admin: 09/06/18 08:32 Dose: 325 mg Gabapentin (Neurontin) 300 mg PO BID [facility] Last Admin: 09/06/18 08:34 Dose: 300 mg Insulin Detemir (Levemir) [address] [facility] Last Admin: 09/05/18 21:21 Dose: 30 units Insulin Human Lispro (Humalog) 0 units SC [facility]; Protocol Last Admin: 09/06/18 07:26 Dose: 2 unit Lorazepam (Ativan) 0.5 mg PO Q8H PRN PRN Reason: Anxiety Oxycodone HCl (Oxycodone Immediate Release Tab) 5 mg PO Q4 PRN PRN Reason: Pain, moderate (4-7) Last Admin: 08/28/18 09:09 Dose: 5 mg Oxycodone HCl (Oxycodone Immediate Release Tab) 10 mg PO Q4 PRN PRN Reason: Pain, severe (8-10) Last Admin: 09/03/18 10:13 Dose: 10 mg Sennosides (Senokot Tab) 17.2 mg PO HS [facility] Last Admin: 09/05/18 21:18 Dose: 17.2 mg Silver Sulfadiazine (Silvadene 1% 20 Gm) 1 ea TOP 0600,1800 [facility] Last Admin: 09/06/18 05:52 Dose: 1 applic Tamsulosin HCl (Flomax) 0.4 mg PO DAILY [facility] Last Admin: 09/06/18 08:35 Dose: 0.4 mg - Labs Labs: 09/05/18 08:45 09/05/18 08:45 PT 12.3 Seconds (9.8-13.1) 08/26/18 06:00 INR 1.1 08/26/18 06:00 APTT 34.2 Seconds (25.6-37.1) 08/26/18 06:00 - Constitutional Appears: Well - Head Exam Head Exam: ATRAUMATIC, NORMAL INSPECTION, NORMOCEPHALIC - Eye Exam Eye Exam: EOMI, Normal appearance, PERRL Pupil Exam: NORMAL ACCOMODATION, PERRL - ENT Exam ENT Exam: Mucous Membranes Moist, Normal Exam - Neck Exam Neck Exam: Full ROM - Respiratory Exam Respiratory Exam: Clear to Ausculation Bilateral, NORMAL BREATHING PATTERN - Cardiovascular Exam Cardiovascular Exam: REGULAR RHYTHM - GI/Abdominal Exam GI & Abdominal Exam: Normal Bowel Sounds - Rectal Exam Rectal Exam: NORMAL INSPECTION - Exam External exam: NORMAL EXTERNAL EXAM - Extremities Exam Extremities Exam: Full ROM, Normal Capillary Refill, Normal Inspection - Back Exam Back Exam: NORMAL INSPECTION - Neurological Exam Neurological Exam: Alert Additional comments: R AKA - Psychiatric Exam Psychiatric exam: Normal Affect - Skin Skin Exam: Normal Color Assessment and Plan (1) DEVIN (acute kidney injury) Status: Acute (2) Anemia Status: Acute (3) Pleural effusion Status: Acute (4) Sarcoma Status: Acute (5) Diabetes mellitus Status: Chronic - Assessment and Plan (Free Text) Assessment: SABRA, covering for Dr Anderson. plan to continue with physical, occupational, rec therapy, monitor skin , Stump. and pain
--- NOTE | 2018-09-06 14:04 | CP.PCM.PN ---
Subjective - Date & Time of Evaluation Date of Evaluation: 09/06/18 Time of Evaluation: 14:02 - Subjective Subjective: RENAL s: seen and examined pain controlled o: vss gen: nad sclera: anicteric oP : clear neck: supple cv: +S1+s2 no rub abd: soft nt nd lungs cta b/l ext: + RAKA neuro: A+OX3 no defecit psych:nml affect skin no rash imp: ARF/ ANemia/ Sarcoma/ hyperphos/kidney stone/bph plan: ruth improving monitor chemistry and uop f/u heme check repeat phos currently on binder f/u Objective - Vital Signs/Intake and Output Vital Signs (last 24 hours): Temp Pulse Resp BP Pulse Ox 97.9 F 78 20 141/78 97 09/06/18 08:08 09/06/18 13:33 09/06/18 08:08 09/06/18 13:33 09/06/18 08:08 Intake and Output: 09/06/18 09/06/18 06:59 18:59 Intake Total 1200 Output Total 1800 Balance -600 - Medications Medications: Current Medications Albuterol (Ventolin Hfa 90 Mcg/Actuation (8 G)) 1 puff IH QID PRN PRN Reason: Shortness of Breath Last Admin: 09/04/18 09:05 Dose: 1 puff Atorvastatin Calcium (Lipitor) 10 mg PO HS [facility] Last Admin: 09/05/18 21:18 Dose: 10 mg Bisacodyl (Dulcolax) 5 mg PO DAILY [facility] Last Admin: 09/06/18 08:32 Dose: 5 mg Calcium Acetate (Phoslo) 667 mg PO TID [facility] Last Admin: 09/06/18 13:30 Dose: 667 mg Clonidine HCl (Catapres) 0.1 mg PO 1400 [facility] Last Admin: 09/06/18 13:33 Dose: 0.1 mg Docusate Sodium (Colace) 300 mg PO DAILY [facility] Last Admin: 09/06/18 08:32 Dose: 300 mg Enoxaparin Sodium (Lovenox) 40 mg SC DAILY [facility]; Protocol Last Admin: 09/06/18 08:31 Dose: 40 mg Ferrous Sulfate (Feosol) 325 mg PO BID [facility] Last Admin: 09/06/18 08:32 Dose: 325 mg Gabapentin (Neurontin) 300 mg PO BID [facility] Last Admin: 09/06/18 08:34 Dose: 300 mg Insulin Detemir (Levemir) 30 units SC [facility] Last Admin: 09/05/18 21:21 Dose: 30 units Insulin Human Lispro (Humalog) 0 units SC [facility]; Protocol Last Admin: 09/06/18 11:30 Dose: 3 unit Lorazepam (Ativan) 0.5 mg PO Q8H PRN PRN Reason: Anxiety Oxycodone HCl (Oxycodone Immediate Release Tab) 5 mg PO Q4 PRN PRN Reason: Pain, moderate (4-7) Last Admin: 08/28/18 09:09 Dose: 5 mg Oxycodone HCl (Oxycodone Immediate Release Tab) 10 mg PO Q4 PRN PRN Reason: Pain, severe (8-10) Last Admin: 09/03/18 10:13 Dose: 10 mg Sennosides (Senokot Tab) 17.2 mg PO [facility] Last Admin: 09/05/18 21:18 Dose: 17.2 mg Silver Sulfadiazine (Silvadene 1% 20 Gm) 1 ea TOP 0600,1800 [facility] Last Admin: 09/06/18 05:52 Dose: 1 applic Tamsulosin HCl (Flomax) 0.4 mg PO DAILY [facility] Last Admin: 09/06/18 08:35 Dose: 0.4 mg - Labs Labs: 09/05/18 08:45 09/05/18 08:45 PT 12.3 Seconds (9.8-13.1) 08/26/18 06:00 INR 1.1 08/26/18 06:00 APTT 34.2 Seconds (25.6-37.1) 08/26/18 06:00
[2018-09-06] MEDS: Insulin Detemir 100 Units/ml Inj SC SCH (21:51)
[2018-09-07] MEDS: Silver Sulfadiazine 1% Cream (20 gm) TOP SCH ×2 (06:30→17:46)
[2018-09-07] MEDS: Insulin Lispro (humaLOG) 100 Units/ml Inj SC SCH ×5 (08:02→22:04)
[2018-09-07] MEDS: Bisacodyl 5mg EC Tab PO SCH (08:07)
[2018-09-07] MEDS: Enoxaparin 40 mg Syringe SC SCH (08:09)
[2018-09-07 08:39] LABS: ALBUMIN 3.7 g/dL (3.5-5.0); CALCIUM 8.9 mg/dL (8.4-10.2)
[2018-09-07] MEDS ORDERED: oxyCODONE 10 mg Immediate Release Tab PO PRN (18:15)
[2018-09-07] MEDS ORDERED: oxyCODONE 5 mg Immediate Release Tab PO PRN (18:15)
[2018-09-07] MEDS: Insulin Detemir 100 Units/ml Inj SC SCH (21:11)
[2018-09-07] MEDS ORDERED: Insulin Detemir 100 Units/ml Inj SC ONE (21:30)
[2018-09-08] MEDS: Silver Sulfadiazine 1% Cream (20 gm) TOP SCH ×2 (06:31→16:59)
[2018-09-08] MEDS: Insulin Lispro (humaLOG) 100 Units/ml Inj SC SCH ×4 (07:42→21:31)
[2018-09-08 08:13] LABS: HEMOGLOBIN 10.3 g/dL (12.0-18.0); MEAN CELL VOLUME 90.9 fl (80.0-94.0); MEAN CORPUSCULAR HEMOGLOBIN 29.6 pg (27.0-31.0); MEAN CORPUSCULAR HGB CONC 32.6 g/dL (33.0-37.0); RBC 3.47 Mil/uL (4.40-5.90); RED CELL DISTRIBUTION WIDTH 17.2 % (11.5-14.5); WHITE BLOOD COUNT 4.7 K/uL (4.8-10.8)
[2018-09-08 08:28] LABS: CALCIUM 9.3 mg/dL (8.4-10.2)
[2018-09-08] MEDS: Bisacodyl 5mg EC Tab PO SCH (09:24)
[2018-09-08] MEDS: Enoxaparin 40 mg Syringe SC SCH (09:25)
--- NOTE | 2018-09-08 10:28 | CP.PCM.PN ---
Subjective - Date & Time of Evaluation Date of Evaluation: 09/08/18 Time of Evaluation: 10:32 - Subjective Subjective: Patient awake and conscious feeling good Receiving physiotherapy No nausea no vomiting Vital signs stable Objective - Vital Signs/Intake and Output Vital Signs (last 24 hours): Temp Pulse Resp BP Pulse Ox 97.7 F 70 18 141/72 95 09/08/18 07:31 09/08/18 07:31 09/08/18 07:31 09/08/18 07:31 09/08/18 07:31 Intake and Output: 09/08/18 09/08/18 06:59 18:59 Intake Total 450 Output Total 1650 Balance -1200 - Medications Medications: Current Medications Albuterol (Ventolin Hfa 90 Mcg/Actuation (8 G)) 1 puff IH QID PRN PRN Reason: Shortness of Breath Last Admin: 09/04/18 09:05 Dose: 1 puff Atorvastatin Calcium (Lipitor) 10 mg PO HS [facility] Last Admin: 09/07/18 21:11 Dose: 10 mg Bisacodyl (Dulcolax) 5 mg PO DAILY [facility] Last Admin: 09/08/18 09:24 Dose: Not Given Calcium Acetate (Phoslo) 667 mg PO TID [facility] Last Admin: 09/08/18 09:27 Dose: 667 mg Clonidine HCl (Catapres) 0.1 mg PO 1400 [facility] Last Admin: 09/07/18 14:11 Dose: 0.1 mg Docusate Sodium (Colace) 300 mg PO DAILY [facility] Last Admin: 09/08/18 09:24 Dose: Not Given Enoxaparin Sodium (Lovenox) 40 mg SC DAILY [facility]; Protocol Last Admin: 09/08/18 09:25 Dose: 40 mg Ferrous Sulfate (Feosol) 325 mg PO BID [facility] Last Admin: 09/08/18 09:25 Dose: 325 mg Gabapentin (Neurontin) 300 mg PO BID [facility] Last Admin: 09/08/18 09:26 Dose: 300 mg Insulin Detemir (Levemir) 50 units SC [facility] Insulin Human Lispro (Humalog) 0 units SC [facility]; Protocol Last Admin: 09/08/18 07:42 Dose: 3 units Lorazepam (Ativan) 0.5 mg PO Q8H PRN PRN Reason: Anxiety Oxycodone HCl (Oxycodone Immediate Release Tab) 10 mg PO Q4 PRN PRN Reason: Pain, severe (8-10) Oxycodone HCl (Oxycodone Immediate Release Tab) 5 mg PO Q4 PRN PRN Reason: Pain, moderate (4-7) Sennosides (Senokot Tab) 17.2 mg PO HS [facility] Last Admin: 09/07/18 21:13 Dose: Not Given Silver Sulfadiazine (Silvadene 1% 20 Gm) 1 ea TOP 0600,1800 [facility] Last Admin: 09/08/18 06:31 Dose: 1 applic Tamsulosin HCl (Flomax) 0.4 mg PO DAILY [facility] Last Admin: 09/08/18 09:25 Dose: 0.4 mg - Labs Labs: 09/08/18 07:50 09/08/18 07:50 PT 12.3 Seconds (9.8-13.1) 08/26/18 06:00 INR 1.1 08/26/18 06:00 APTT 34.2 Seconds (25.6-37.1) 08/26/18 06:00 - Constitutional Appears: No Acute Distress - Eye Exam Eye Exam: Conjunctival injection - ENT Exam ENT Exam: Mucous Membranes Moist - Respiratory Exam Respiratory Exam: NORMAL BREATHING PATTERN. absent: Chest Wall Tenderness, Rhonchi - Cardiovascular Exam Cardiovascular Exam: absent: Gallop, JVD, Rubs - GI/Abdominal Exam GI & Abdominal Exam: Soft, Normal Bowel Sounds - Extremities Exam Extremities Exam: absent: Calf Tenderness - Back Exam Back Exam: absent: CVA tenderness (L), CVA tenderness (R) - Neurological Exam Neurological Exam: Alert - Psychiatric Exam Psychiatric exam: Normal Affect - Skin Skin Exam: absent: Cyanosis Assessment and Plan (1) Anemia Status: Acute (2) DEVIN (acute kidney injury) Status: Acute (3) Diabetes mellitus Status: Chronic (4) Hypertension Status: Chronic - Assessment and Plan (Free Text) Assessment: Acute kidney injury Etiology not clear patient appears to have a dropping in his hemoglobin and also according to the he lost a lot of blood in the other hospital during the a mputation so I am not sure if he has hypotensive episode at that time and compromise his renal perfusion? No proteinuria Hyperphosphatemia Diabetes mellitus Hypertension Status post above-knee amputation for sarcoma Hepatomegaly and fatty liver and possible ascites on CAT scan and some pleural effusion? And bilateral small renal calculi has been reported on the CAT scan as well see the detail My recommendation Status post 2 units of blood transfused overnight on 09/01 Serum creatinine improving trending down and improving and kidney function Daily weight and intake and output Immune work-up C3-C4 normal Eosinophils in the urine negative DC IV fluid Immune fixation not detected Appear to be recovering from acute kidney injury serum creatinine dropping down and repeat tomorrow. Patient was seen by urologist and Flomax was added Serum phosphorus coming down 4.2 DC calcium acetate
--- NOTE | 2018-09-08 14:45 | CT ---
Date of service: 09/08/2018 PROCEDURE: CT Chest, Abdomen without intravenous contrast HISTORY: hx sarcoma with metastasis COMPARISON: 08/31/2018. CT abdomen and pelvis. 09/15/2015 CT thorax. TECHNIQUE: Radiation dose: Total exam DLP = 935.52 mGy-cm. This CT exam was performed using one or more of the following dose reduction techniques: Automated exposure control, adjustment of the mA and/or kV according to patient size, and/or use of iterative reconstruction technique. Total exam DLP = 935.52 mGy-cm. FINDINGS: CT CHEST WITHOUT CONTRAST: LUNGS: Postoperative changes following resection of a tumor mass superior segment right lower lobe seen on the prior CT 09/15/2015 of the thorax. MEDIASTINUM: Unremarkable. Normal caliber aorta and pulmonary arterial trunk. Normal size heart. LYMPH NODES: Hilar and infrahilar lymphadenopathy. An additional tumor masses seen interposed between segmental bronchi to the right lower lobe and the esophagus. This mass measures 1.9 x 2.2 cm. PLEURA: Unremarkable. No pneumothorax. No pleural fluid. BONES: Unremarkable. OTHER FINDINGS: Tumor identified interposed between the liver/diaphragmatic surface and the pericardial reflection, pericardial fat. This confluence of masses measures 3.6 x 7 cm. Additional smaller masses are noted studding the surface of the diaphragm and pericardium more medial and inferiorly. Additional tumor masses interposed between the dome of the diaphragm/liver and the IVC measured 2.[address] ABDOMEN AND PELVIS: LIVER: Unremarkable. No gross lesion or ductal dilatation. Postoperative changes right upper lobe. Scarring at the surgical site. GALLBLADDER AND BILE DUCTS: Unremarkable. PANCREAS: Unremarkable. No gross lesion or ductal dilatation. SPLEEN: Unremarkable. ADRENALS: Unremarkable. No mass. KIDNEYS AND URETERS: Renal calculi, bilateral and nonobstructing, similar finding seen on the recent CT scan of the abdomen and pelvis. No hydronephrosis. No solid mass. VASCULATURE: Atherosclerotic calcification and mural plaque present. Findings are seen throughout the aorta which is non aneurysmal. BOWEL: Unremarkable. No obstruction. No gross mural thickening. APPENDIX: Normal appendix. PERITONEUM: Unremarkable. No free fluid. No free air. LYMPH NODES: Unremarkable. No enlarged lymph nodes. BLADDER: Unremarkable. REPRODUCTIVE: Unremarkable. BONES: No acute fracture. OTHER FINDINGS: Soft tissue mass anterior abdominal pelvic fat to the right of the midline measures under 1 cm. Please refer to axial series 2/image 206. IMPRESSION: THORAX: Tumor burden identified right hilum, diaphragmatic surface, pericardium and right lower lobe azygo esophageal recess region. ABDOMEN RETROPERITONEUM AND PELVIS: Subcutaneous soft tissue mass 1 cm anterior lower abdominal pelvic wall to the left of the midline. Additional benign and/or incidental findings described above.
--- NOTE | 2018-09-08 17:35 | CP.PCM.PN ---
Subjective - Date & Time of Evaluation Date of Evaluation: 09/08/18 Time of Evaluation: 17:34 - Subjective Subjective: Patient seen in the room, just had a course of chemo and a little tired no ill side effects no pain. Objective - Vital Signs/Intake and Output Vital Signs (last 24 hours): Temp Pulse Resp BP Pulse Ox 97.7 F 77 18 132/76 95 09/08/18 07:31 09/08/18 15:05 09/08/18 07:31 09/08/18 15:05 09/08/18 07:31 Intake and Output: 09/08/18 09/08/18 06:59 18:59 Intake Total 450 100 Output Total 1650 Balance -1200 100 - Medications Medications: Current Medications Albuterol (Ventolin Hfa 90 Mcg/Actuation (8 G)) 1 puff IH QID PRN PRN Reason: Shortness of Breath Last Admin: 09/04/18 09:05 Dose: 1 puff Atorvastatin Calcium (Lipitor) 10 mg PO [facility] Last Admin: 09/07/18 21:11 Dose: 10 mg Bisacodyl (Dulcolax) 5 mg PO DAILY [facility] Last Admin: 09/08/18 09:24 Dose: Not Given Clonidine HCl (Catapres) 0.1 mg PO 1400 [facility] Last Admin: 09/08/18 15:05 Dose: 0.1 mg Docusate Sodium (Colace) 300 mg PO DAILY [facility] Last Admin: 09/08/18 09:24 Dose: Not Given Enoxaparin Sodium (Lovenox) 40 mg SC DAILY [facility]; Protocol Last Admin: 09/08/18 09:25 Dose: 40 mg Ferrous Sulfate (Feosol) 325 mg PO BID [facility] Last Admin: 09/08/18 16:37 Dose: 325 mg Gabapentin (Neurontin) 300 mg PO BID [facility] Last Admin: 09/08/18 16:43 Dose: 300 mg Insulin Detemir (Levemir) 50 units SC [facility] Insulin Human Lispro (Humalog) 0 units SC [facility]; Protocol Last Admin: 09/08/18 16:38 Dose: 3 units Lorazepam (Ativan) 0.5 mg PO Q8H PRN PRN Reason: Anxiety Oxycodone HCl (Oxycodone Immediate Release Tab) 10 mg PO Q4 PRN PRN Reason: Pain, severe (8-10) Oxycodone HCl (Oxycodone Immediate Release Tab) 5 mg PO Q4 PRN PRN Reason: Pain, moderate (4-7) Sennosides (Senokot Tab) 17.2 mg PO HS [facility] Last Admin: 09/07/18 21:13 Dose: Not Given Silver Sulfadiazine (Silvadene 1% 20 Gm) 1 ea TOP 0600,1800 [facility] Last Admin: 09/08/18 16:59 Dose: 1 applic Tamsulosin HCl (Flomax) 0.4 mg PO DAILY [facility] Last Admin: 09/08/18 09:25 Dose: 0.4 mg - Labs Labs: 09/08/18 07:50 09/08/18 07:50 PT 12.3 Seconds (9.8-13.1) 08/26/18 06:00 INR 1.1 08/26/18 06:00 APTT 34.2 Seconds (25.6-37.1) 08/26/18 06:00 - Constitutional Appears: Non-toxic - Head Exam Head Exam: ATRAUMATIC, NORMAL INSPECTION, NORMOCEPHALIC - Eye Exam Eye Exam: EOMI - ENT Exam ENT Exam: Mucous Membranes Moist - Respiratory Exam Respiratory Exam: absent: Respiratory Distress Assessment and Plan - Assessment and Plan (Free Text) Assessment: right AKA secondary to sarcoma resection getting chemo no pain continue current care set for d/c home tomorrow will get chemo next week by his house.
[2018-09-08 20:10] VITALS: RESP 20
[2018-09-08] MEDS ORDERED: Insulin Detemir 100 Units/ml Inj SC SCH (22:00)
[2018-09-08] MEDS ORDERED: Insulin Lispro (humaLOG) 100 Units/ml Inj SC STA (22:44)
[2018-09-09] MEDS: Silver Sulfadiazine 1% Cream (20 gm) TOP SCH (07:05)
[2018-09-09] MEDS: Insulin Lispro (humaLOG) 100 Units/ml Inj SC SCH (07:07)
[2018-09-09 08:20] VITALS: BP 117/79; PULSE 86; TEMP 97.2; O2SAT 99
--- NOTE | 2018-09-09 09:05 | CP.PCM.PN ---
Subjective - Date & Time of Evaluation Date of Evaluation: 09/09/18 Time of Evaluation: 09:03 - Subjective Subjective: Pt received the chemotherapy yesterday with no side effects. He will be discharged today and continue his chemo at [place], Objective - Vital Signs/Intake and Output Vital Signs (last 24 hours): Temp Pulse Resp BP Pulse Ox 97.2 F L 86 20 117/79 99 09/09/18 08:19 09/09/18 08:19 09/09/18 08:19 09/09/18 08:19 09/09/18 08:19 Intake and Output: 09/09/18 09/09/18 06:59 18:59 Intake Total 450 Output Total 1800 Balance -1350 - Medications Medications: Current Medications Albuterol (Ventolin Hfa 90 Mcg/Actuation (8 G)) 1 puff IH QID PRN PRN Reason: Shortness of Breath Last Admin: 09/04/18 09:05 Dose: 1 puff Atorvastatin Calcium (Lipitor) 10 mg PO [facility] Last Admin: 09/08/18 21:34 Dose: 10 mg Bisacodyl (Dulcolax) 5 mg PO DAILY [facility] Last Admin: 09/08/18 09:24 Dose: Not Given Bisacodyl (Dulcolax) 10 mg OR Q24H PRN PRN Reason: Constipation Clonidine HCl (Catapres) 0.1 mg PO 1400 [facility] Last Admin: 09/08/18 15:05 Dose: 0.1 mg Docusate Sodium (Colace) 300 mg PO DAILY [facility] Last Admin: 09/08/18 09:24 Dose: Not Given Ferrous Sulfate (Feosol) 325 mg PO BID [facility] Last Admin: 09/08/18 16:37 Dose: 325 mg Gabapentin (Neurontin) 300 mg PO BID [facility] Last Admin: 09/08/18 16:43 Dose: 300 mg Insulin Detemir (Levemir) 50 units SC [facility] Last Admin: 09/08/18 21:28 Dose: 50 units Insulin Detemir (Levemir) 50 units SC [facility] Insulin Human Lispro (Humalog) 0 units SC [facility]; Protocol Last Admin: 09/09/18 07:07 Dose: 6 units Lorazepam (Ativan) 0.5 mg PO Q8H PRN PRN Reason: Anxiety Oxycodone HCl (Oxycodone Immediate Release Tab) 10 mg PO Q4 PRN PRN Reason: Pain, severe (8-10) Oxycodone HCl (Oxycodone Immediate Release Tab) 5 mg PO Q4 PRN PRN Reason: Pain, moderate (4-7) Sennosides (Senokot Tab) 17.2 mg PO HS [facility] Last Admin: 09/08/18 21:37 Dose: Not Given Silver Sulfadiazine (Silvadene 1% 20 Gm) 1 ea TOP 0600,1800 [facility] Last Admin: 09/09/18 07:05 Dose: 1 applic Tamsulosin HCl (Flomax) 0.4 mg PO DAILY [facility] Last Admin: 09/08/18 09:25 Dose: 0.4 mg - Labs Labs: 09/08/18 07:50 09/08/18 07:50 PT 12.3 Seconds (9.8-13.1) 08/26/18 06:00 INR 1.1 08/26/18 06:00 APTT 34.2 Seconds (25.6-37.1) 08/26/18 06:00
[2018-09-09] MEDS ORDERED: Insulin Detemir 100 Units/ml Inj SC SCH (22:00)
== END 2018-09-09 08:50 | disposition home health service (06) | DRG 949 ==
PROC: F07Z5FZ Bed Mobility Treatment using Assistive, Adaptive, Supportive or Protective Equipment (ICD-10-PCS; principal; 2018-08-25)
PROC: F07Z8FZ Transfer Training Treatment using Assistive, Adaptive, Supportive or Protective Equipment (ICD-10-PCS; 2018-08-25)
PROC: F08Z0FZ Bathing/Showering Techniques Treatment using Assistive, Adaptive, Supportive or Protective Equipment (ICD-10-PCS; 2018-08-25)
PROC: F08Z1FZ Dressing Techniques Treatment using Assistive, Adaptive, Supportive or Protective Equipment (ICD-10-PCS; 2018-08-25)
PROC: F07Z9FZ Gait Training/Functional Ambulation Treatment using Assistive, Adaptive, Supportive or Protective Equipment (ICD-10-PCS; 2018-08-25)
PROC: F07L6GZ Therapeutic Exercise Treatment of Musculoskeletal System - Lower Back / Lower Extremity using Aerobic Endurance and Conditioning Equipment (ICD-10-PCS; 2018-08-25)
PROC: F07L7ZZ Manual Therapy Techniques Treatment of Musculoskeletal System - Lower Back / Lower Extremity (ICD-10-PCS; 2018-08-25)
PROC: F07Z4FZ Wheelchair Mobility Treatment using Assistive, Adaptive, Supportive or Protective Equipment (ICD-10-PCS; 2018-08-25)
DX: Z48.3 Aftercare following surgery for neoplasm (principal); C79.9 Secondary malignant neoplasm of unspecified site; N17.9 Acute kidney failure, unspecified; N20.2 Calculus of kidney with calculus of ureter; D62 Acute posthemorrhagic anemia; Z68.41 Body mass index [BMI] 40.0-44.9, adult; C76.51 Malignant neoplasm of right lower limb; Z89.611 Acquired absence of right leg above knee; K59.00 Constipation, unspecified; E83.39 Other disorders of phosphorus metabolism; K76.0 Fatty (change of) liver, not elsewhere classified; E86.1 Hypovolemia; N40.0 Benign prostatic hyperplasia without lower urinary tract symptoms; E11.9 Type 2 diabetes mellitus without complications; I10 Essential (primary) hypertension; E66.9 Obesity, unspecified